=== PATIENT | male | born 1945 | race Two or more races ===

== ENCOUNTER 2020-03-01 07:07 | Outpatient (REF) | payer MEDICARE, SELFPAY ==
[2020-03-01 08:44] LABS: Estimated Average Glucose 120 mg/dL; Hemoglobin A1c % 5.8 %
[2020-03-01 08:45] LABS: Alanine Aminotransferase 25 U/L (0-40); Alkaline Phosphatase 92 U/L (39-117); Anion Gap 10 (12-20); Aspartate Amino Transferase 19 U/L (5-37); Bilirubin Total 0.6 mg/dL (0.0-1.0); Blood Urea Nitrogen 16 mg/dL (9-16); Calcium 8.9 mg/dL (8.4-10.2); Carbon Dioxide 29 mmol/L (22-29); Chloride 109 mmol/L (96-108); Cholesterol 135 mg/dL; Estimated Glomerular Filt Rate 54; Glucose Random 107 mg/dL (60-115); HDL Cholesterol 34 mg/dL; LDL Cholesterol Calculated 86 mg/dl; Potassium 4.3 mmol/l (3.3-5.1); Sodium 144 mmol/L (135-145); Total Protein 6.9 g/dL (6.5-8.0); Triglycerides 78 mg/dL
== END 2020-03-01 07:08 | disposition home or self-care (01) ==
LOC: HO.LAB 07:07
PROVIDERS: PCP Internal Medicine; Visit Provider Internal Medicine
DX: Z00.01 Encounter for general adult medical examination with abnormal findings (principal); E78.00 Pure hypercholesterolemia, unspecified; I12.9 Hypertensive chronic kidney disease with stage 1 through stage 4 chronic kidney disease, or unspecified chronic kidney disease; N18.9 Chronic kidney disease, unspecified
CPT/HCPCS: 80053; 80061; 83036

== ENCOUNTER 2020-07-06 07:28 | Outpatient (REF) | payer MEDICARE, SELFPAY ==
[2020-07-06 08:03] LABS: MANUAL DIFF FLAG NO
[2020-07-06 08:05] LABS: Basophils Percent Auto 0.3 % (0-2); Eosinophils Percent Auto 0.6 % (0-4); Hematocrit 45.4 % (42-52); Hemoglobin 14.8 g/dl (14.0-18.0); Imm Gran Abs Auto 0.02 X10*3/uL (0.00-0.03); Imm Gran Pct Auto 0.3 % (0.0-0.4); Lymphocytes Absolute Auto 1.9 X10*3/uL (1.2-4.9); Lymphocytes Percent Auto 30.4 % (20-40); Mean Corpuscular HGB Conc 32.6 g/dl (31.0-36.0); Mean Corpuscular Hemoglobin 28.1 pg (27.0-33.0); Mean Corpuscular Volume 86.3 fL (80-98); Mean Platelet Volume 11.1 fL (9.4-12.4); Monocytes Absolute Auto 0.6 X10*3/uL (0.1-1.2); Neutrophils Absolute Auto 3.8 X10*3/uL (2.0-8.3); Neutrophils Percent Auto 59.4 % (45-73); Platelet Count 213 X10*3/uL (160-400); Red Blood Count 5.26 X10*6/uL (4.60-5.80); Red Cell Distribution Width 13.4 % (11.0-16.0); White Blood Count 6.3 X10*3/uL (4.8-10.8)
[2020-07-06 08:31] LABS: Alanine Aminotransferase 28 U/L (0-40); Albumin Level 3.9 g/dL (3.5-5.0); Alkaline Phosphatase 100 U/L (39-117); Anion Gap 11 (12-20); Aspartate Amino Transferase 22 U/L (5-37); Bilirubin Total 0.4 mg/dL (0.0-1.0); Blood Urea Nitrogen 14 mg/dL (9-16); Calcium 8.6 mg/dL (8.4-10.2); Carbon Dioxide 26 mmol/L (22-29); Chloride 107 mmol/L (96-108); Cholesterol 164 mg/dL; Estimated Glomerular Filt Rate 52; Glucose Random 114 mg/dL (60-115); HDL Cholesterol 31 mg/dL; LDL Cholesterol Calculated 114 mg/dl; Potassium 4.3 mmol/L (3.3-5.1); Sodium 140 mmol/L (135-145); Triglycerides 99 mg/dL
[2020-07-06 08:54] LABS: Thyroid Stimulating Hormone 2.38 uIU/mL (0.32-4.0)
== END 2020-07-06 07:29 | disposition home or self-care (01) ==
LOC: HO.LAB 07:28
PROVIDERS: PCP Internal Medicine; Visit Provider Internal Medicine
DX: E78.00 Pure hypercholesterolemia, unspecified (principal); I12.9 Hypertensive chronic kidney disease with stage 1 through stage 4 chronic kidney disease, or unspecified chronic kidney disease
CPT/HCPCS: 36415; 80053; 80061; 84443; 85025

== ENCOUNTER 2021-02-25 07:15 | Outpatient (REF) | payer MEDICARE, SELFPAY ==
[2021-02-25 07:26] LABS: MANUAL DIFF FLAG NO
[2021-02-25 08:31] LABS: Basophils Percent Auto 0.3 % (0-2); Eosinophils Absolute Auto 0.1 X10*3/uL (0.0-0.4); Eosinophils Percent Auto 1.5 % (0-4); Hematocrit 46.4 % (42-52); Imm Gran Abs Auto 0.03 X10*3/uL (0.00-0.03); Imm Gran Pct Auto 0.5 % (0.0-0.4); Lymphocytes Absolute Auto 2.3 X10*3/uL (1.2-4.9); Lymphocytes Percent Auto 35.1 % (20-40); Mean Corpuscular HGB Conc 32.3 g/dl (31.0-36.0); Mean Corpuscular Volume 86.6 fL (80-98); Mean Platelet Volume 11.4 fL (9.4-12.4); Monocytes Absolute Auto 0.6 X10*3/uL (0.1-1.2); Monocytes Percent Auto 8.3 % (2-11); Neutrophils Absolute Auto 3.6 X10*3/uL (2.0-8.3); Neutrophils Percent Auto 54.3 % (45-73); Platelet Count 193 X10*3/uL (160-400); Red Blood Count 5.36 X10*6/uL (4.60-5.80); Red Cell Distribution Width 14.2 % (11.0-16.0); White Blood Count 6.6 X10*3/uL (4.8-10.8)
[2021-02-25 08:58] LABS: Alanine Aminotransferase 34 U/L (0-40); Albumin Level 4.2 g/dL (3.5-5.0); Alkaline Phosphatase 99 U/L (39-117); Anion Gap 9 (12-20); Aspartate Amino Transferase 24 U/L (5-37); Bilirubin Total 0.6 mg/dL (0.0-1.0); Blood Urea Nitrogen 11 mg/dL (9-16); Calcium 9.3 mg/dL (8.4-10.2); Carbon Dioxide 29 mmol/L (22-29); Chloride 110 mmol/L (96-108); Cholesterol 206 mg/dL; Estimated Glomerular Filt Rate 53; Glucose Fasting 108 mg/dL (60-99); HDL Cholesterol 37 mg/dL; LDL Cholesterol Calculated 150 mg/dl; Potassium 4.7 mmol/L (3.3-5.1); Sodium 143 mmol/L (135-145); Total Protein 7.3 g/dL (6.5-8.0); Triglycerides 99 mg/dL
== END 2021-02-25 07:16 | disposition home or self-care (01) ==
LOC: HO.LAB 07:15
PROVIDERS: PCP Internal Medicine; Visit Provider Internal Medicine
DX: Z00.00 Encounter for general adult medical examination without abnormal findings (principal); Z13.31 Encounter for screening for depression; E78.2 Mixed hyperlipidemia; I12.9 Hypertensive chronic kidney disease with stage 1 through stage 4 chronic kidney disease, or unspecified chronic kidney disease; N18.9 Chronic kidney disease, unspecified
CPT/HCPCS: 36415; 80053; 80061; 85025

== ENCOUNTER 2021-07-01 07:55 | Outpatient (REF) | payer MEDICARE, SELFPAY ==
[2021-07-01 09:27] LABS: Alanine Aminotransferase 24 U/L (0-40); Albumin Level 3.9 g/dL (3.5-5.0); Alkaline Phosphatase 80 U/L (39-117); Anion Gap 10 (12-20); Aspartate Amino Transferase 20 U/L (5-37); Bilirubin Total 0.6 mg/dL (0.0-1.0); Blood Urea Nitrogen 18 mg/dL (9-16); Calcium 9.3 mg/dL (8.4-10.2); Carbon Dioxide 29 mmol/L (22-29); Chloride 106 mmol/L (96-108); Cholesterol 153 mg/dL; Estimated Glomerular Filt Rate 44; Glucose Random 111 mg/dL (60-115); HDL Cholesterol 32 mg/dL; LDL Cholesterol Calculated 104 mg/dl; Potassium 4.5 mmol/L (3.3-5.1); Triglycerides 85 mg/dL
[2021-07-01 09:37] LABS: Sodium 141 mmol/L (135-145)
== END 2021-07-01 07:56 | disposition home or self-care (01) ==
LOC: HO.LAB 07:55
PROVIDERS: PCP Internal Medicine; Visit Provider Internal Medicine
DX: E78.00 Pure hypercholesterolemia, unspecified (principal); I12.9 Hypertensive chronic kidney disease with stage 1 through stage 4 chronic kidney disease, or unspecified chronic kidney disease; N18.9 Chronic kidney disease, unspecified
CPT/HCPCS: 36415; 80053; 80061

== ENCOUNTER 2021-10-02 06:54 | Outpatient (REF) | payer OTHER, SELFPAY ==
[2021-10-02 07:11] LABS: MANUAL DIFF FLAG NO
[2021-10-02 07:39] LABS: Basophils Percent Auto 0.4 % (0-2); Eosinophils Absolute Auto 0.1 X10*3/uL (0.0-0.4); Eosinophils Percent Auto 1.3 % (0-4); Hematocrit 44.2 % (42.0-52.0); Hemoglobin 14.2 g/dl (14.0-18.0); Imm Gran Abs Auto 0.06 X10*3/uL (0.00-0.03); Imm Gran Pct Auto 0.9 % (0.0-0.4); Lymphocytes Absolute Auto 2.3 X10*3/uL (1.2-4.9); Lymphocytes Percent Auto 33.5 % (20-40); Mean Corpuscular HGB Conc 32.1 g/dl (31.0-36.0); Mean Corpuscular Hemoglobin 27.5 pg (27.0-33.0); Mean Corpuscular Volume 85.7 fL (80.0-98.0); Mean Platelet Volume 10.8 fL (9.4-12.4); Monocytes Absolute Auto 0.6 X10*3/uL (0.1-1.2); Monocytes Percent Auto 9.2 % (2-11); Neutrophils Absolute Auto 3.8 x10*3/uL (2.0-8.3); Neutrophils Percent Auto 54.7 % (45-73); Platelet Count 198 X10*3/uL (160-400); Red Blood Count 5.16 X10*6/uL (4.60-5.80); Red Cell Distribution Width 14.5 % (11.0-16.0); White Blood Count 6.9 X10*3/uL (4.8-10.8)
[2021-10-02 08:04] LABS: Alanine Aminotransferase 24 U/L (0-40); Albumin Level 3.9 g/dL (3.5-5.0); Alkaline Phosphatase 70 U/L (39-117); Anion Gap 10 (12-20); Aspartate Amino Transferase 20 U/L (5-37); Bilirubin Total 0.4 mg/dL (0.0-1.0); Blood Urea Nitrogen 19 mg/dL (9-16); Calcium 9.8 mg/dL (8.4-10.2); Carbon Dioxide 29 mmol/L (22-29); Chloride 107 mmol/L (96-108); Cholesterol 231 mg/dL; Estimated Glomerular Filt Rate 45; Glucose Random 118 mg/dL (60-115); HDL Cholesterol 36 mg/dL; LDL Cholesterol Calculated 170 mg/dl; Potassium 4.1 mmol/L (3.3-5.1); Sodium 142 mmol/L (135-145); Triglycerides 129 mg/dL
[2021-10-02 08:54] LABS: Creatinine Urine 221.44 mg/dL; Microalbum/Creatinine Ratio Ur 3.6 ug/mg cr
== END 2021-10-02 06:55 | disposition home or self-care (01) ==
LOC: HO.LAB 06:54
PROVIDERS: PCP Internal Medicine; Visit Provider Internal Medicine
DX: E78.00 Pure hypercholesterolemia, unspecified (principal); I12.9 Hypertensive chronic kidney disease with stage 1 through stage 4 chronic kidney disease, or unspecified chronic kidney disease; N18.9 Chronic kidney disease, unspecified
CPT/HCPCS: 36415; 80053; 80061; 82043; 85025

== ENCOUNTER 2021-11-18 09:25 | Outpatient (REF) | payer OTHER, SELFPAY ==
--- NOTE | ~2021-11-18 | US_ITS ---
EXAMINATION: US RETROPERITONEAL LIMITED (RENAL ONLY) AND RENAL DOPPLER CLINICAL INFORMATION: Hypertension. COMPARISON: None. TECHNIQUE: Grayscale and color imaging of the kidneys. Grayscale and Doppler imaging of the renal arteries and renal veins including waveform spectral analysis. FINDINGS: RIGHT KIDNEY: 9.5 x 4.6 x 6 cm (SAG x AP x TRV). The kidney is normal in size, contour, and echogenicity. Renal cortical thickness is normal. There are 2 cysts. There is a 1.7 x 1.4 x 1.4 cm cyst in the upper pole. There is a 2.7 x 2.2 x 3 cm cyst with septation and wall calcification in the midpole. There is question of a 3 mm stone in the midpole. No mass. No hydronephrosis. LEFT KIDNEY: 9.7 x 5.5 x 4.7 cm (SAG x AP x TRV). The kidney is normal in size, contour, and echogenicity. Renal cortical thickness is normal. There are 3 and 4 mm stones in the midpole. There is probable prominent column of Jerel in the midpole measuring 2 x 1.6 x 1.6 cm. No hydronephrosis. RENAL DOPPLER EXAM: Peak systolic velocity of the mid abdominal aorta measures 114 cm/s which is too high to be used to calculate renal jexkai-io-hmlrq ratio. The right renal artery is patent. Right renal artery peak systolic velocity is elevated and measures 209 cm/s proximally, 118 cm/s in the midportion and 134 cm/s distally. Right renal artery segmental resistive indices are slightly elevated measuring 0.7-0.8. The right renal vein is patent. The left renal artery is patent. Left renal artery peak systolic velocity is elevated and measures 228 cm/s proximally, 203 cm/s in the midportion and 83 cm/s distally. Resistive indices of the segmental renal arteries in the left kidney are slightly elevated measuring 0.7-0.8. The left renal artery is patent. US/US renal doppler IMPRESSION: Increased bilateral renal artery peak systolic velocities and resistive indices suggestive of at least 60% renal artery stenosis. Renal lvuxrm-aw-xiaqt ratios cannot be calculated. Bilateral renal stones. Right renal cysts. Probable hypertrophied column of Jerel in the midpole of the left kidney.
--- NOTE | ~2021-11-18 | US_ITS ---
EXAMINATION: US RETROPERITONEAL LIMITED (RENAL ONLY) AND RENAL DOPPLER CLINICAL INFORMATION: Hypertension. COMPARISON: None. TECHNIQUE: Grayscale and color imaging of the kidneys. Grayscale and Doppler imaging of the renal arteries and renal veins including waveform spectral analysis. FINDINGS: RIGHT KIDNEY: 9.5 x 4.6 x 6 cm (SAG x AP x TRV). The kidney is normal in size, contour, and echogenicity. Renal cortical thickness is normal. There are 2 cysts. There is a 1.7 x 1.4 x 1.4 cm cyst in the upper pole. There is a 2.7 x 2.2 x 3 cm cyst with septation and wall calcification in the midpole. There is question of a 3 mm stone in the midpole. No mass. No hydronephrosis. LEFT KIDNEY: 9.7 x 5.5 x 4.7 cm (SAG x AP x TRV). The kidney is normal in size, contour, and echogenicity. Renal cortical thickness is normal. There are 3 and 4 mm stones in the midpole. There is probable prominent column of Jerel in the midpole measuring 2 x 1.6 x 1.6 cm. No hydronephrosis. RENAL DOPPLER EXAM: Peak systolic velocity of the mid abdominal aorta measures 114 cm/s which is too high to be used to calculate renal htkxkf-oa-uzgqi ratio. The right renal artery is patent. Right renal artery peak systolic velocity is elevated and measures 209 cm/s proximally, 118 cm/s in the midportion and 134 cm/s distally. Right renal artery segmental resistive indices are slightly elevated measuring 0.7-0.8. The right renal vein is patent. The left renal artery is patent. Left renal artery peak systolic velocity is elevated and measures 228 cm/s proximally, 203 cm/s in the midportion and 83 cm/s distally. Resistive indices of the segmental renal arteries in the left kidney are slightly elevated measuring 0.7-0.8. The left renal artery is patent. US/US renal BI IMPRESSION: Increased bilateral renal artery peak systolic velocities and resistive indices suggestive of at least 60% renal artery stenosis. Renal olqqta-ny-audmg ratios cannot be calculated. Bilateral renal stones. Right renal cysts. Probable hypertrophied column of Jerel in the midpole of the left kidney.
== END 2021-11-18 09:26 | disposition home or self-care (01) ==
LOC: HO.US 09:25
PROVIDERS: Visit Provider Internal Medicine Nephrology
DX: I12.9 Hypertensive chronic kidney disease with stage 1 through stage 4 chronic kidney disease, or unspecified chronic kidney disease (principal); N18.31 Chronic kidney disease, stage 3a
CPT/HCPCS: 76775; 93975

== ENCOUNTER 2021-12-13 08:33 | Outpatient (REF) | payer OTHER, SELFPAY ==
[2021-12-13 09:30] LABS: Estimated Average Glucose 126 mg/dL
[2021-12-13 09:48] LABS: Alanine Aminotransferase 25 U/L (0-40); Albumin Level 3.9 g/dL (3.5-5.0); Alkaline Phosphatase 73 U/L (39-117); Anion Gap 10 (12-20); Aspartate Amino Transferase 19 U/L (5-37); Bilirubin Total 0.5 mg/dL (0.0-1.0); Blood Urea Nitrogen 20 mg/dL (9-16); Calcium 9.1 mg/dL (8.4-10.2); Carbon Dioxide 28 mmol/L (22-29); Chloride 108 mmol/L (96-108); Cholesterol 168 mg/dL; Estimated Glomerular Filt Rate 47; Glucose Random 102 mg/dL (60-115); HDL Cholesterol 35 mg/dL; LDL Cholesterol Calculated 109 mg/dl; Potassium 4.3 mmol/L (3.3-5.1); Sodium 142 mmol/L (135-145); Total Protein 6.9 g/dL (6.5-8.0); Triglycerides 122 mg/dL
[2021-12-13 10:09] LABS: Thyroid Stimulating Hormone 1.65 uIU/mL (0.32-4.0)
== END 2021-12-13 08:34 | disposition home or self-care (01) ==
LOC: HO.LAB 08:33
PROVIDERS: PCP Internal Medicine; Visit Provider Internal Medicine
DX: E78.00 Pure hypercholesterolemia, unspecified (principal); I12.9 Hypertensive chronic kidney disease with stage 1 through stage 4 chronic kidney disease, or unspecified chronic kidney disease; N18.9 Chronic kidney disease, unspecified; K59.04 Chronic idiopathic constipation
CPT/HCPCS: 36415; 80053; 80061; 83036; 84443

== ENCOUNTER 2022-06-14 07:39 | Outpatient (REF) | payer OTHER, SELFPAY ==
[2022-06-14 08:05] LABS: MANUAL DIFF FLAG NO
[2022-06-14 08:34] LABS: Basophils Percent Auto 0.3 % (0-2); Eosinophils Absolute Auto 0.2 X10*3/uL (0.0-0.4); Eosinophils Percent Auto 2.1 % (0-4); Hematocrit 46.2 % (42.0-52.0); Imm Gran Abs Auto 0.05 X10*3/uL (0.00-0.03); Imm Gran Pct Auto 0.7 % (0.0-0.4); Lymphocytes Absolute Auto 2.3 X10*3/uL (1.2-4.9); Lymphocytes Percent Auto 31.3 % (20-40); Mean Corpuscular HGB Conc 32.5 g/dl (31.0-36.0); Mean Corpuscular Volume 83.1 fL (80.0-98.0); Mean Platelet Volume 10.3 fL (9.4-12.4); Monocytes Absolute Auto 0.8 X10*3/uL (0.1-1.2); Monocytes Percent Auto 10.7 % (2-11); Neutrophils Percent Auto 54.9 % (45-73); Platelet Count 210 X10*3/uL (160-400); Red Blood Count 5.56 X10*6/uL (4.60-5.80); Red Cell Distribution Width 14.5 % (11.0-16.0); White Blood Count 7.3 X10*3/uL (4.8-10.8)
[2022-06-14 09:09] LABS: Anion Gap 11 (12-20); Blood Urea Nitrogen 18 mg/dL (9-16); Calcium 9.4 mg/dL (8.4-10.2); Carbon Dioxide 29 mmol/L (22-29); Chloride 106 mmol/L (96-108); Estimated Glomerular Filt Rate 47; Potassium 4.2 mmol/L (3.3-5.1); Sodium 142 mmol/L (135-145)
[2022-06-14 09:21] LABS: Alanine Aminotransferase 34 U/L (0-40); Alkaline Phosphatase 81 U/L (39-117); Anion Gap 10 (12-20); Aspartate Amino Transferase 25 U/L (5-37); Bilirubin Total 0.6 mg/dL (0.0-1.0); Blood Urea Nitrogen 18 mg/dL (9-16); Calcium 9.4 mg/dL (8.4-10.2); Carbon Dioxide 29 mmol/L (22-29); Chloride 107 mmol/L (96-108); Cholesterol 158 mg/dL; Estimated Glomerular Filt Rate 46; Glucose Random 106 mg/dL (60-115); HDL Cholesterol 34 mg/dL; LDL Cholesterol Calculated 99 mg/dl; Potassium 4.1 mmol/L (3.3-5.1); Sodium 142 mmol/L (135-145); Triglycerides 128 mg/dL
[2022-06-14 09:41] LABS: Prostate Specific Antigen 5.84 ng/mL (<0.05-4.0); Vitamin D 25-OH Total 16.3 ng/mL (>30)
[2022-06-14 09:48] LABS: Creatinine Urine 174.01 mg/dL
== END 2022-06-14 07:40 | disposition home or self-care (01) ==
LOC: HO.LAB 07:39
PROVIDERS: Absent Provider Internal Medicine Nephrology; PCP Internal Medicine; Visit Provider Internal Medicine
DX: Z00.00 Encounter for general adult medical examination without abnormal findings (principal); Z12.5 Encounter for screening for malignant neoplasm of prostate; Z13.31 Encounter for screening for depression; N40.0 Benign prostatic hyperplasia without lower urinary tract symptoms; E78.00 Pure hypercholesterolemia, unspecified; I12.9 Hypertensive chronic kidney disease with stage 1 through stage 4 chronic kidney disease, or unspecified chronic kidney disease; N18.9 Chronic kidney disease, unspecified; N20.0 Calculus of kidney; N28.1 Cyst of kidney, acquired
CPT/HCPCS: 36415; 80051; 80053; 80061; 82306; 82310; 82565; 84153; 84520; 85025

== ENCOUNTER 2022-12-13 07:05 | Outpatient (REF) | payer OTHER, SELFPAY ==
[2022-12-13 08:08] LABS: Alanine Aminotransferase 27 U/L (0-40); Alkaline Phosphatase 73 U/L (39-117); Anion Gap 10 (12-20); Aspartate Amino Transferase 25 U/L (5-37); Bilirubin Total 0.5 mg/dL (0.0-1.0); Blood Urea Nitrogen 23 mg/dL (9-16); Calcium 9.3 mg/dL (8.4-10.2); Carbon Dioxide 27 mmol/L (22-29); Chloride 109 mmol/L (96-108); Estimated Glomerular Filt Rate 45; Glucose Random 121 mg/dL (60-115); Sodium 142 mmol/L (135-145); Total Protein 7.3 g/dL (6.5-8.0)
[2022-12-13 08:30] LABS: Prostate Specific Antigen 7.98 ng/mL (<0.05-4.0)
== END 2022-12-13 07:06 | disposition home or self-care (01) ==
LOC: HO.LAB 07:05
PROVIDERS: PCP Internal Medicine; Visit Provider Internal Medicine
DX: E55.9 Vitamin D deficiency, unspecified (principal); E70.0 Classical phenylketonuria; I12.9 Hypertensive chronic kidney disease with stage 1 through stage 4 chronic kidney disease, or unspecified chronic kidney disease; N18.9 Chronic kidney disease, unspecified; R97.20 Elevated prostate specific antigen [PSA]; Z12.5 Encounter for screening for malignant neoplasm of prostate
CPT/HCPCS: 36415; 80053; 84153

== ENCOUNTER 2023-01-05 13:48 | Outpatient (REF) | payer OTHER, SELFPAY ==
[2023-01-06 02:36] LABS: Anion Gap 12 (12-20); Blood Urea Nitrogen 24 mg/dL (9-16); Calcium 9.4 mg/dL (8.4-10.2); Carbon Dioxide 26 mmol/L (22-29); Chloride 109 mmol/L (96-108); Estimated Glomerular Filt Rate 37; Potassium 4.1 mmol/L (3.3-5.1); Sodium 143 mmol/L (135-145)
[2023-01-06 02:47] LABS: Creatinine Urine 110.24 mg/dL; Total Protein Urine Random < 7 mg/dL (<12)
== END 2023-01-05 13:49 | disposition home or self-care (01) ==
LOC: HO.LAB 13:48
PROVIDERS: PCP Internal Medicine; Visit Provider Internal Medicine Nephrology
DX: N20.0 Calculus of kidney (principal); I12.9 Hypertensive chronic kidney disease with stage 1 through stage 4 chronic kidney disease, or unspecified chronic kidney disease; N18.31 Chronic kidney disease, stage 3a
CPT/HCPCS: 36415; 80051; 82310; 82565; 84156; 84520

== ENCOUNTER 2023-01-23 09:49 | Outpatient (AMB) | payer OTHER, SELFPAY ==
--- NOTE | 2023-01-23 09:52 | MHC.OFFVIS ---
Intake Intake Visit Reasons: Elevated PSA 7.98 Intake Note: New Patient presents for initial visit Elevated PSA (PSA 7.98) Urology Medications: none Blood Thinner: none Parking Station Attendant Required: Yes Parking Station Attendant Name: AIDE Accompanied by: Self / Same As Patient Allergies GABI Inhibitors Adverse Reaction (Verified 01/23/23 10:27) renal failure atorvastatin Adverse Reaction (Verified 01/23/23 10:27) myalgia rosuvastatin Adverse Reaction (Verified 01/23/23 10:27) Constipation simvastatin Adverse Reaction (Verified 01/23/23 10:27) myalgia Medication List - Last Reconciled 01/23/23 by NAMRATA Deutsch amlodipine 10 mg PO DAILY lisinopril-hydrochlorothiazide 20-12.5 mg 1 tab PO DAILY rosuvastatin 20 mg PO BEDTIME HPI HPI Comments History of Present Illness Details Kirill is a pleasant 77 year old Swedish speaking patient of Dr. Mccall. He has a past medical history of hypercholesteremia, hypertension, and nephrolithiasis. He presents to the office today as a new patient for elevated PSA. Discussion with the patient today reports to be doing and feeling well. He reports having had annual blood work with PCP at which time he was noted to have an elevated PSA and referred to Urology. In review of patient's chart it appears PSAs are as follows: 05/11--3.0 06/16--5.8 12/14--8.0 Discussed at length potential causes for elevated PSA. Discussed redraw of PSA. Discussed further prostate biopsy versus surveillance monitoring verses trial of finasteride. Discuss treatment options at length. Discussed risks and benefits of asforementioned interventions. When asked patient denies any bothersome urinary issues or concerns at this time. He denies urinary urgency, urinary frequency, incontinence, nocturia, hematuria, dysuria, foul smelling urine, changes to urinary stream, flank pain, fever, and or chills. He is happy with his current voiding parameters. He denies any known family history of prostate cancer. In office urinalysis results reviewed with the patient today. TEDDY right side of prostate noted to be firm otherwise no masses or nodules palpated. He otherwise offers no issues or concerns at this time. [facility] Medical History High cholesterol Hypertension Nephrolithiasis Review of Systems Const Reports as per HPI Eyes Reports no additional complaints ENT Reports no additional complaints Card Reports as per HPI Resp Reports no additional complaints GI Reports no additional complaints Reports as per HPI Musc Reports no additional complaints Neuro Reports no additional complaints Psych Reports no additional complaints Endo Reports no additional complaints Uri/Lymph Reports no additional complaints Aller/Immun Reports no additional complaints Physical Exam Const General: cooperative, healthy appearing, comfortable, no acute distress, well developed, alert and awake Orientation/consciousness: patient oriented x3 Limitations: no limitations HEENT Head: Yes normal to inspection, Yes normocephalic and Yes atraumatic Ears: hearing grossly normal bilaterally Eyes General: appearance normal, both eyes and all related structures Neck Neck: Yes normal visual inspection and Yes trachea midline Chest Chest palpation & inspection: normal inspection of the chest Resp Effort & Inspection: normal respiratory effort and able to speak in complete sentences Cardio Rate: regular rate GI Inspection: Yes normal to inspection Rectal Exam - Male: Yes visual inspection normal, Yes normal sphincter tone and Yes other (as noted in HPI) General: Yes no CVA tenderness Back/Spine/Pelvis Back: no CVA tenderness Skin General skin exam: no rashes or lesions noted Neuro General: patient oriented x3 Extrem General: Yes normal to inspection Psych Appearance: grossly normal and well kempt Mental Status: mental status grossly normal Speech and movement: Normal speech and movement present and Clear speech present Affect: normal affect Attitude: cooperative Thought process: Normal thought process present Thought content: Normal thought content present Insight: Fair insight present (Psych) Judgement: Fair judgement present (Psych) Results AMB Urinalysis, Automated UA Leukoctes 0 Bertin/uL Last Edit by Jose Guadalupe Epstein on 01/23/23 10:08 UA Nitrite Negative Last Edit by [employer] Lucian on 01/23/23 10:08 UA Urobilinogen 0.2 mg/dL Last Edit by [employer] Lucian on 01/23/23 10:08 UA Protein 15 mg/dL Last Edit by BirceCenifymaribel Epstein on 01/23/23 10:08 UA pH 5.5 Last Edit by CoinJarmaribel Epstein on 01/23/23 10:08 UA Blood 0 Jason/uL Last Edit by CoinJarmaribel Epstein on 01/23/23 10:08 UA Specific Eldred 1.025 Last Edit by Jose Guadalupe Epstein on 01/23/23 10:08 UA Ketone Last Edit by Jose Guadalupe Epstein on 01/23/23 10:08 UA Bilirubin 0 mg/dL Last Edit by Jose Guadalupe Epstein on 01/23/23 10:08 UA Glucose 0 mg/dL Last Edit by Jose Guadalupe Epstein on 01/23/23 10:08 Results Reviewed Results Reviewed: Laboratory Last Values Urine pH (Auto) 5.5 01/23/23 09:57 Specific Eldred (Auto) 1.025 01/23/23 09:57 Urine Protein (Auto) 15 mg/dL 01/23/23 09:57 Glucose (UA)(Auto) 0 mg/dL 01/23/23 09:57 Urine Blood (Auto) 0 Jason/uL 01/23/23 09:57 Urine Nitrite (Auto) Negative 01/23/23 09:57 Urine Bilirubin (Auto) 0 mg/dL 01/23/23 09:57 Urine Urobilinogen (Auto) 0.2 mg/dL 01/23/23 09:57 Leukocyte Esterase (Auto) 0 Bertin/uL 01/23/23 09:57 Assessment & Plan Assessment & Plan (1) Elevated PSA: Code(s): R97.20 - Elevated prostate specific antigen [PSA] Plan In office urinalysis results reviewed with the patient today; as noted above. Discussed at length potential causes for elevated PSA. Discussed further treatment options at length; discussed risks and benefits. Will obtain redraw of PSA with specific instructions of no sex the night before, no caffeine morning of, and no heavy lifting 1-2 days prior to lab draw. TEDDY right side of prostate noted to be firm otherwise no masses or nodules palpated. Will obtain retroperitoneal ultrasound for further assessment evaluation. Patient denies any bothersome urinary issues or concerns at this time. Follow-up in 1-2 months with imaging and lab to be completed prior; or sooner with any issues, concerns, and or questions. Orders: Orders PSA,Total (Free>4and<10) 01/23/23 R97.20 - Elevated prostate specific antigen [PSA] US retroperitoneal comp 01/23/23 R39.9 - Unspecified symptoms and signs involving the genitourinary system AMB Urinalysis Automated 01/23/23 Z13.9 - Encounter for screening, unspecified Patient Instructions: The patient had an opportunity to ask questions regarding the treatment plan. All questions were answered. Physical exam, labs, and imaging were discussed and reviewed in detail. As well as risks, benefits, and discussion of treatment choices. No major barriers to understanding were identified. The patient expressed understanding and agreement with the above treatment plan. The patient was made aware they should contact our office by phone for worsening of their current condition, the appearance of new symptoms, or with any questions or concerns. Compliance is encouraged with any medications and follow up testing that is ordered. It is a privilege to be allowed the opportunity to participate in? your urological care.? Again, if you have any questions or concerns If you have any questions or concerns please do not hesitate to contact me. The office is [phone]. This note is constructed using voice recognition software. While every effort has been made to ensure accuracy java user interface developer errors may have been included. Yours sincerely, NAMRATA Deutsch Coding Level of Care Code New Pt Level 3 (02065) Diagnoses Elevated PSA R97.20
== END 2023-01-23 10:25 | disposition home or self-care (01) ==
PROVIDERS: PCP Internal Medicine; Visit Provider Nurse Practitioner Family
DX: R97.20 Elevated prostate specific antigen [PSA] (principal)
CPT/HCPCS: 99203

== ENCOUNTER → 2023-01-23 09:49 | Outpatient (BNVA) | payer OTHER, SELFPAY | PROVIDERS: PCP Internal Medicine; Visit Provider Nurse Practitioner Family | DX: R97.20 Elevated prostate specific antigen [PSA] (principal) | CPT/HCPCS: 81003; 99202 ==

== ENCOUNTER 2023-02-06 13:15 | Outpatient (REF) | payer OTHER, SELFPAY ==
--- NOTE | ~2023-02-06 | US_ITS ---
EXAMINATION: US RETROPERITONEAL COMPLETE (RENAL) CLINICAL INFORMATION: Unspecified symptoms and signs involving the genitourinary system. COMPARISON: Renal ultrasound 11/18/2021. TECHNIQUE: Real-time imaging of the kidneys and bladder. FINDINGS: RIGHT KIDNEY: 9.1 x 5.2 x 5.6 cm (SAG x AP x TRV). The kidney is normal in size, contour, and echogenicity. Renal cortical thickness is normal. No renal calculi or hydronephrosis. Benign-appearing renal cysts and likely benign renal cysts measuring up to 3 cm. No follow-up imaging recommended. LEFT KIDNEY: 10.0 x 5.5 x 4.1 cm (SAG x AP x TRV). The kidney is normal in size, contour, and echogenicity. Renal cortical thickness is normal. No calculi or focal parenchymal lesions. No hydronephrosis. Hypertrophied column of Jerel. BLADDER: Partially distended. Bilateral ureteral jets are not demonstrated. Prevoid bladder volume is 74.3 mL. Postvoid bladder volume is 2.2 mL. ADDITIONAL FINDINGS: Prostate is markedly enlarged with a volume of 136 mL. US/US retroperitoneal comp IMPRESSION: No hydronephrosis or nephrolithiasis. Marked prostatomegaly.
== END 2023-02-06 13:16 | disposition home or self-care (01) ==
LOC: HO.US 13:15
PROVIDERS: PCP Internal Medicine; Visit Provider Nurse Practitioner Family
DX: R39.9 Unspecified symptoms and signs involving the genitourinary system (principal)
CPT/HCPCS: 76770

== ENCOUNTER 2023-03-17 07:29 | Outpatient (REF) | payer OTHER, SELFPAY ==
[2023-03-17 08:34] LABS: PSA,Total (Free>4and<10) 5.85 ng/mL (0.00-4.00)
[2023-03-18 11:03] LABS: Free Prostate Spec Ag 1.5 ng/mL; Percent Free Prostate Spec Ag 27 % (calc) (>25); Prostate Specific Ag Total 5.6 ng/mL (< OR = 4.0)
== END 2023-03-17 07:30 | disposition home or self-care (01) ==
LOC: HO.LAB 07:29
PROVIDERS: PCP Internal Medicine; Visit Provider Nurse Practitioner Family
DX: R97.20 Elevated prostate specific antigen [PSA] (principal); Z12.5 Encounter for screening for malignant neoplasm of prostate
CPT/HCPCS: 36415; 84153; 84154

== ENCOUNTER 2023-03-24 14:10 | Outpatient (AMB) | payer OTHER, SELFPAY ==
--- NOTE | 2023-03-24 14:31 | A.OFFVIS_ITS ---
Intake Intake Visit Reasons: Elevated PSA- follow up/US/Labs(set) Intake Note: Patient presents today for a follow-up on Elavated PSA Meds- None Allergies to Antibiotic- No Known Allergies Blood Thinner- None PSA Results- Total 5.85 ng/mL, Prostate Spe 7.98 ng/mL 03/17/2023 PVR- 70 mL Patient Symptoms: None Copy Technician Required: Yes Copy Technician Language: Plate Printer Name: AIDE BondELVIRA Information Interpreted: non-clinical & clinical Accompanied by: Self / Same As Patient Allergies GABI Inhibitors Adverse Reaction (Verified 03/24/23 23:34) renal failure atorvastatin Adverse Reaction (Verified 03/24/23 23:34) myalgia rosuvastatin Adverse Reaction (Verified 03/24/23 23:34) Constipation simvastatin Adverse Reaction (Verified 03/24/23 23:34) myalgia Medication List - Last Reconciled 03/24/23 by CHERY Deutsch- amlodipine 10 mg PO DAILY finasteride 5 mg PO DAILY 90 days lisinopril-hydrochlorothiazide 20-12.5 mg 1 tab PO DAILY rosuvastatin 20 mg PO BEDTIME HPI HPI Comments History of Present Illness Details Kirill is a pleasant 77 year old Bulgarian speaking patient of Dr. Mccall. He has a past medical history of hypercholesteremia, hypertension, and nephrolithiasis. He presents to the office today for follow-up. Of note, patient was seen approximately 2 months ago as a new patient for elevated PSA at which time redraw of PSA was ordered as well as a retroperitoneal ultrasound for further assessment evaluation these results reviewed with the patient today. Right kidney with no calculi, and or hydronephrosis. Benign-appearing renal cyst and likely benign renal cysts measuring up to 3 cm. No imaging follow-up recommended per radiology report. Left kidney with no hydronephrosis and or calculi. The bladder is partially distended. Prevoid bladder volume is approximately 75 mL. Postvoid bladder volume is approximately 2 mL. Prostate is markedly enlarged with a volume of 136 mL. PSAs are as follows: 05/11--3.0 06/16--5.8 12/14--8.0 03/17--5.9 03/17--5.6 % free PSA 27%. Discussed at length potential causes for elevated PSA. Discussed further prostate biopsy versus surveillance monitoring verses trial of finasteride. Discussed treatment options at length. Discussed risks and benefits of asforemen tioned interventions. When asked patient denies any bothersome urinary issues or concerns at this time. He denies urinary urgency, urinary frequency, incontinence, nocturia, hematuria, dysuria, foul smelling urine, changes to urinary stream, flank pain, fever, and or chills. He is happy with his current voiding parameters. He denies any known family history of prostate cancer. In office urinalysis results reviewed with the patient today. He otherwise offers no issues or concerns at this time. [facility] Medical History (Updated 03/24/23 @ 23:[address] [facility]) High cholesterol Nephrolithiasis Hypertension Surgical History (Updated 03/24/23 @ 14:33 by CARL Banuelos) No pertinent past surgical history Family History (Updated 03/24/23 @ 14:33 by CARL Banuelos) Father No problems noted. Mother No problems noted. Social History (Updated 03/24/23 @ 14:33 by CARL Banuelos) Unable to assess alcohol history related to: Unable to respond Patient Tobacco Use Status: Never used Tobacco Review of Systems Const Reports as per HPI Eyes Reports no additional complaints ENT Reports no additional complaints Card Reports as per HPI Resp Reports no additional complaints GI Reports no additional complaints Reports as per HPI Musc Reports no additional complaints Neuro Reports no additional complaints Psych Reports no additional complaints Endo Reports no additional complaints Uri/Lymph Reports no additional complaints Aller/Immun Reports no additional complaints Physical Exam Const General: cooperative, healthy appearing, comfortable, no acute distress, well developed, alert and awake Orientation/consciousness: patient oriented x3 Limitations: no limitations HEENT Head: Yes normal to inspection, Yes normocephalic and Yes atraumatic Ears: hearing grossly normal bilaterally Eyes General: appearance normal, both eyes and all related structures Neck Neck: Yes normal visual inspection and Yes trachea midline Chest Chest palpation & inspection: normal inspection of the chest Resp Effort & Inspection: normal respiratory effort and able to speak in complete sentences Cardio Rate: regular rate GI Inspection: Yes normal to inspection Rectal Exam - Male: Yes visual inspection normal, Yes normal sphincter tone and Yes other (as noted in HPI) General: Yes no CVA tenderness Back/Spine/Pelvis Back: no CVA tenderness Skin General skin exam: no rashes or lesions noted Neuro General: patient oriented x3 Extrem General: Yes normal to inspection Psych Appearance: grossly normal and well kempt Mental Status: mental status grossly normal Speech and movement: Normal speech and movement present and Clear speech present Affect: normal affect Attitude: cooperative Thought process: Normal thought process present Thought content: Normal thought content present Insight: Fair insight present (Psych) Judgement: Fair judgement present (Psych) Office Procedures Post Void Residual Post Residual Void Post Void Residual (PVR): 70 [id number] Void Residual by ultrasound Results AMB Urinalysis, Automated UA Leukoctes 0 Bertin/uL Last Edit by CARL Banuelos on 03/24/23 14:30 UA Nitrite Negative Last Edit by CARL Banuelos on 03/24/23 14:30 UA Urobilinogen 0.2 mg/dL Last Edit by CARL Banuelos on 03/24/23 14:3 0 UA Protein 15 mg/dL Last Edit by CARL Banuelos on 03/24/23 14:30 UA pH 5.5 Last Edit by CARL Banuelos on 03/24/23 14:30 UA Blood 0 Jason/uL Last Edit by CARL Banuelos on 03/24/23 14:30 UA Specific Kell 1.025 Last Edit by CARL Banuelos on 03/24/23 14: 30 UA Ketone Negative Last Edit by CARL Banuelos on 03/24/23 14:30 UA Bilirubin 0 mg/dL Last Edit by CARL Banuelos on 03/24/23 14:30 UA Glucose 0 mg/dL Last Edit by CARL Banuelos on 03/24/23 14:30 Results Reviewed Results Reviewed: Laboratory Last Values Urine pH (Auto) 5.5 03/24/23 14:24 Specific Kell (Auto) 1.025 03/24/23 14:24 Urine Protein (Auto) 15 mg/dL 03/24/23 14:24 Glucose (UA)(Auto) 0 mg/dL 03/24/23 14:24 Urine Ketones (Auto) Negative 03/24/23 14:24 Urine Blood (Auto) 0 Jason/uL 03/24/23 14:24 Urine Nitrite (Auto) Negative 03/24/23 14:24 Urine Bilirubin (Auto) 0 mg/dL 03/24/23 14:24 Urine Urobilinogen (Auto) 0.2 mg/dL 03/24/23 14:24 Leukocyte Esterase (Auto) 0 Bertin/uL 03/24/23 14:24 Ordering Physician: Cecilia MacdonaldBC Date of Service: 02/06/23 EXAMINATION: US RETROPERITONEAL COMPLETE (RENAL) FINDINGS: RIGHT KIDNEY: 9.1 x 5.2 x 5.6 cm (SAG x AP x TRV). The kidney is normal in size, contour, and echogenicity. Renal cortical thickness is normal. No renal calculi or hydronephrosis. Benign-appearing renal cysts and likely benign renal cysts measuring up to 3 cm. No follow-up imaging recommended. LEFT KIDNEY: 10.0 x 5.5 x 4.1 cm (SAG x AP x TRV). The kidney is normal in size, contour, and echogenicity. Renal cortical thickness is normal. No calculi or focal parenchymal lesions. No hydronephrosis. Hypertrophied column of Jerel. BLADDER: Partially distended. Bilateral ureteral jets are not demonstrated. Prevoid bladder volume is 74.3 mL. Postvoid bladder volume is 2.2 mL. ADDITIONAL FINDINGS: Prostate is markedly enlarged with a volume of 136 mL. IMPRESSION: No hydronephrosis or nephrolithiasis. Marked prostatomegaly. Assessment & Plan Assessment & Plan (1) Elevated PSA: Code(s): R97.20 - Elevated prostate specific antigen [PSA] (2) Enlarged prostate: Code(s): N40.0 - Benign prostatic hyperplasia without lower urinary tract symptoms (3) Renal cyst: Code(s): N28.1 - Cyst of kidney, acquired Plan In office urinalysis results reviewed with the patient today; as noted above. Recent PSA results reviewed with the patient today; as noted above. Recent retroperitoneal ultrasound results reviewed with the patient today; as noted above. Discussed at length potential causes for elevated PSA. Discussed further treatment options at length; discussed risks and benefits. Start finasteride as discussed and prescribed. Patient denies any bothersome urinary issues or concerns at this time. Patient reports be happy with current voiding parameters. Will obtain PSA in 4 months. Follow-up in 4 months with PSA to be completed prior; or sooner with any issues, concerns, and or questions. Orders: Orders AMB Urinalysis Automated Today Z13.9 - Encounter for screening, unspecified AMB Post Void Residual by ultrasound Today N39.8 - Other specified disorders of urinary system PSA,Total (Free>4and<10) 4 Months R97.20 - Elevated prostate specific antigen [PSA] Medications: New finasteride 5 mg PO DAILY 90 days 90 tabs 1RF N13.8 - Other obstructive and reflux uropathy, N40.1 - Benign prostatic hyperplasia with lower urinary tract symptoms, R33.9 - Retention of urine, unspecified Patient Instructions: The patient had an opportunity to ask questions regarding the treatment plan. All questions were answered. Physical exam, labs, and imaging were discussed and reviewed in detail. As well as risks, benefits, and discussion of treatment choices. No major barriers to understanding were identified. The patient expressed understanding and agreement with the above treatment plan. The patient was made aware they should contact our office by phone for worsening of their current condition, the appearance of new symptoms, or with any questions or concerns. Compliance is encouraged with any medications and follow up testing that is ordered. It is a privilege to be allowed the opportunity to participate in? your urological care.? Again, if you have any questions or concerns If you have any questions or concerns please do not hesitate to contact me. The office is [phone]. This note is constructed using voice recognition software. While every effort has been made to ensure accuracy move coordinator errors may have been included. Yours sincerely, NAMRATA Deutsch Coding Level of Care Code Est Pt Level 4 (34506) Diagnoses Elevated PSA R97.20 Enlarged prostate N40.0 Renal cyst N28.1 CPT Codes Post Residual Void - PVR CPT Code: 94563-Aesh Void Residual by ultrasound ([id number])
== END 2023-03-24 15:00 | disposition home or self-care (01) ==
PROVIDERS: PCP Internal Medicine; Visit Provider Nurse Practitioner Family
DX: R97.20 Elevated prostate specific antigen [PSA] (principal); N40.0 Benign prostatic hyperplasia without lower urinary tract symptoms; N28.1 Cyst of kidney, acquired
CPT/HCPCS: 99214

== ENCOUNTER → 2023-03-24 14:10 | Outpatient (BNVA) | payer OTHER, SELFPAY | PROVIDERS: PCP Internal Medicine; Visit Provider Nurse Practitioner Family | DX: R97.20 Elevated prostate specific antigen [PSA] (principal); N40.0 Benign prostatic hyperplasia without lower urinary tract symptoms; N28.1 Cyst of kidney, acquired | CPT/HCPCS: 51798; 81003; 99212 ==

== ENCOUNTER 2023-03-25 08:07 | Outpatient (REF) | payer OTHER, SELFPAY ==
[2023-03-25 08:24] LABS: MANUAL DIFF FLAG NO
[2023-03-25 09:05] LABS: Basophils Percent Auto 0.5 % (0-2); Eosinophils Absolute Auto 0.1 X10*3/uL (0.0-0.4); Eosinophils Percent Auto 2.1 % (0-4); Hematocrit 43.4 % (42.0-52.0); Hemoglobin 14.2 g/dl (14.0-18.0); Imm Gran Abs Auto 0.03 X10*3/uL (0.00-0.03); Imm Gran Pct Auto 0.5 % (0.0-0.4); Lymphocytes Absolute Auto 2.2 X10*3/uL (1.2-4.9); Lymphocytes Percent Auto 33.6 % (20-40); Mean Corpuscular HGB Conc 32.7 g/dl (31.0-36.0); Mean Corpuscular Hemoglobin 27.6 pg (27.0-33.0); Mean Corpuscular Volume 84.4 fL (80.0-98.0); Mean Platelet Volume 10.7 fL (9.4-12.4); Monocytes Absolute Auto 0.6 X10*3/uL (0.1-1.2); Monocytes Percent Auto 9.6 % (2-11); Neutrophils Absolute Auto 3.5 x10*3/uL (2.0-8.3); Neutrophils Percent Auto 53.7 % (45-73); Platelet Count 209 X10*3/uL (160-400); Red Blood Count 5.14 X10*6/uL (4.60-5.80); Red Cell Distribution Width 14.8 % (11.0-16.0); White Blood Count 6.6 X10*3/uL (4.8-10.8)
[2023-03-25 09:21] LABS: Estimated Average Glucose 120 mg/dL; Hemoglobin A1c % 5.8 % (<6.0)
[2023-03-25 09:54] LABS: Alanine Aminotransferase 22 U/L (0-40); Albumin Level 3.9 g/dL (3.5-5.0); Alkaline Phosphatase 74 U/L (39-117); Anion Gap 12 (12-20); Aspartate Amino Transferase 20 U/L (5-37); Bilirubin Total 0.3 mg/dL (0.0-1.0); Blood Urea Nitrogen 16 mg/dL (9-16); Calcium 9.5 mg/dL (8.4-10.2); Carbon Dioxide 27 mmol/L (22-29); Chloride 107 mmol/L (96-108); Cholesterol 165 mg/dL (<200); Estimated Glomerular Filt Rate 49; Glucose Random 99 mg/dL (60-115); HDL Cholesterol 37 mg/dL (>40); LDL Cholesterol Calculated 106 mg/dL (<100); Potassium 3.9 mmol/L (3.3-5.1); Sodium 142 mmol/L (135-145); Total Protein 7.4 g/dL (6.5-8.0); Triglycerides 113 mg/dL (<150)
== END 2023-03-25 08:08 | disposition home or self-care (01) ==
LOC: HO.LAB 08:07
PROVIDERS: PCP Internal Medicine; Visit Provider Internal Medicine
DX: E78.00 Pure hypercholesterolemia, unspecified (principal); I12.9 Hypertensive chronic kidney disease with stage 1 through stage 4 chronic kidney disease, or unspecified chronic kidney disease; N18.9 Chronic kidney disease, unspecified; R73.01 Impaired fasting glucose; R97.20 Elevated prostate specific antigen [PSA]
CPT/HCPCS: 36415; 80053; 80061; 83036; 85025

== ENCOUNTER 2023-04-30 11:17 | Outpatient (REF) | payer OTHER, SELFPAY ==
[2023-04-30 11:39] LABS: MANUAL DIFF FLAG NO
[2023-04-30 12:33] LABS: Basophils Percent Auto 0.5 % (0-2); Eosinophils Absolute Auto 0.2 X10*3/uL (0.0-0.4); Eosinophils Percent Auto 3.1 % (0-4); Hematocrit 45.9 % (42.0-52.0); Hemoglobin 14.7 g/dl (14.0-18.0); Imm Gran Abs Auto 0.03 X10*3/uL (0.00-0.03); Imm Gran Pct Auto 0.5 % (0.0-0.4); Lymphocytes Absolute Auto 2.2 X10*3/uL (1.2-4.9); Lymphocytes Percent Auto 34.3 % (20-40); Mean Corpuscular Hemoglobin 27.1 pg (27.0-33.0); Mean Corpuscular Volume 84.7 fL (80.0-98.0); Mean Platelet Volume 10.8 fL (9.4-12.4); Monocytes Absolute Auto 0.5 X10*3/uL (0.1-1.2); Monocytes Percent Auto 7.8 % (2-11); Neutrophils Absolute Auto 3.5 x10*3/uL (2.0-8.3); Neutrophils Percent Auto 53.8 % (45-73); Platelet Count 228 X10*3/uL (160-400); Red Blood Count 5.42 X10*6/uL (4.60-5.80); Red Cell Distribution Width 14.5 % (11.0-16.0); White Blood Count 6.4 X10*3/uL (4.8-10.8)
[2023-04-30 12:58] LABS: Anion Gap 11 (12-20); Blood Urea Nitrogen 18 mg/dL (9-16); Carbon Dioxide 29 mmol/L (22-29); Chloride 105 mmol/L (96-108); Estimated Glomerular Filt Rate 42; Potassium 4.1 mmol/L (3.3-5.1); Sodium 141 mmol/L (135-145)
[2023-04-30 13:54] LABS: Creatinine Urine 194.33 mg/dL; Protein/Creatinine Ratio, Ur 0.05 (<0.2); Total Protein Urine Random 10 mg/dL (<12)
== END 2023-04-30 11:18 | disposition home or self-care (01) ==
LOC: HO.LAB 11:17
PROVIDERS: Visit Provider Internal Medicine Nephrology
DX: N28.1 Cyst of kidney, acquired (principal); N18.30 Chronic kidney disease, stage 3 unspecified
CPT/HCPCS: 36415; 80051; 82565; 82570; 84156; 84520; 85025

== ENCOUNTER 2023-05-06 14:32 | Outpatient (AMB) | payer OTHER, SELFPAY ==
--- NOTE | 2023-05-06 14:41 | HO.NEPHOV_ITS ---
HPI HPI Comments History of Present Illness Details Gurdeep is a 77-year-old male whom had the privilege of seeing in follow- up for his chronic kidney disease, hypertension and nephrolithiasis. He has been on antihypertensive medications including GABI inhibitor and diuretics for a long time. He is not a diabetic. He is compliant with his medications. He does not take any nonsteroidal anti-inflammatory medications. He has good urine output. He has no edema, nausea, vomiting, diarrhea, chest pain, shortness of breath, proximal nocturnal dyspnea or orthopnea. He has not had any recurrence of nephrolithiasis. He has no history of recent hematuria. He does not smoke or has any history of drug intake. His renal functions have been stable. [facility] Medical History (Updated 05/06/23 @ 15:09 by Aydin Burgess MD) High cholesterol Nephrolithiasis Hypertension Surgical History No pertinent past surgical history Family History Father No problems noted. Mother No problems noted. Social History Unable to assess alcohol history related to: Unable to respond Patient Tobacco Use Status: Never used Tobacco Vital Signs 05/06/23 14:45 Height 5 ft 4 in Weight 174 lb 4 oz BMI 29.9 BP 130/60 Blood Pressure Location Rt brachial Position Sitting Pulse 80 Pulse Source Pulse Oximeter Pulse Oximetry (%) 98 Oxygen Delivery Method Room Air Physical Exam Vital Signs: Last Vital Signs Pulse 80 05/06/23 14:45 BP 130/60 05/06/23 14:45 Pulse Ox 98 05/06/23 14:45 Oxygen Delivery Method Room Air 05/06/23 14:45 BMI result Body Mass Index 29.9 Const General: comfortable and no acute distress Orientation/consciousness: patient oriented x3 HEENT Head: Yes normocephalic Mouth: Normal oral and palatal mucosa present Eyes EOM: EOMs intact bilaterally Neck Neck: Yes supple Resp Auscultation: clear to auscultation bilaterally Cardio Jugular venous distension: no JVD Rate: regular rate GI Palpation (GI): Soft to palpation Auscultation: normal bowel sounds General: Yes no CVA tenderness Back/Spine/Pelvis Back: no CVA tenderness Skin General skin exam: no rashes or lesions noted Neuro General: patient oriented x3 and moves all extremities Extrem General: Yes no pedal edema Assessment & Plan Assessment & Plan (1) CKD (chronic kidney disease) stage 3, GFR 30-59 ml/min: Code(s): N18.30 - Chronic kidney disease, stage 3 unspecified Qualifiers: Chronic kidney disease stage 3 subtype: stage 3a (GFR 45-59) Qualified Code(s): N18.31 - Chronic kidney disease, stage 3a (2) Nephrolithiasis: Code(s): N20.0 - Calculus of kidney (3) Hypertension: Code(s): I10 - Essential (primary) hypertension Qualifiers: Hypertension type: primary hypertension Qualified Code(s): I10 - Essential (primary) hypertension (4) Renal cyst: Code(s): N28.1 - Cyst of kidney, acquired (5) Renal artery stenosis: Code(s): I70.1 - Atherosclerosis of renal artery Johnathan Mackenzie has 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 He has bilateral renal artery stenosis. He does not need any intervention for his SUZY now. He is on GABI inhibitor and hydrochlorothiazide. His blood pressure has been at goal at home. He has increased his fluid intake and he adds citrate in his liquid intake. He avoids nonsteroidal anti-inflammatory medications and maintain a low-sodium diet. His renal functions are pretty stable. I will arrange a follow-up imaging of his renal arteries as well as kidneys( to look at his renal cyst and renal arteries as well). I did not make any medication changes today. All his questions and concerns were addressed. Time spent retrieving data, documentation and patient encounter 27 minutes. Follow up given. Orders: Orders Electrolytes Today I10 - Essential (primary) hypertension, N18.30 - Chronic kidney disease, stage 3 unspecified, N20.0 - Calculus of kidney Creatinine Today I10 - Essential (primary) hypertension, N18.30 - Chronic kidney disease, stage 3 unspecified, N20.0 - Calculus of kidney Blood Urea Nitrogen Today I10 - Essential (primary) hypertension, N18.30 - Chronic kidney disease, stage 3 unspecified, N20.0 - Calculus of kidney Coding Level of Care Code Est Pt Level 4 (64341) Diagnoses Stage 3a chronic kidney disease N18.31 Chronic kidney disease stage 3 subtype: stage 3a (GFR 45-59) Nephrolithiasis N20.0 Primary hypertension I10 Hypertension type: primary hypertension Renal cyst N28.1 Renal artery stenosis I70.1 Results Reviewed Nephrology Results: Hgb 14.7 g/dl (14.0-18.0) 04/30/23 WBC 6.4 X10*3/uL (4.8-10.8) 04/30/23 Plt Count 228 X10*3/uL (160-400) 04/30/23 Sodium 141 mmol/L (135-145) 04/30/23 Potassium 4.1 mmol/L (3.3-5.1) 04/30/23 Chloride 105 mmol/L (96-108) 04/30/23 Carbon Dioxide 29 mmol/L (22-29) 04/30/23 BUN 18 mg/dL (9-16) H 04/30/23 Creatinine 1.60 mg/dL (0.5-1.4) H 04/30/23 Calcium 9.5 mg/dL (8.4-10.2) 03/25/23 Urine Creatinine 194.33 mg/dL 04/30/23 Protein/Creatinin Ratio 0.05 (<0.2) 04/30/23 Renal US 11/18/21
[2023-05-06 14:45] VITALS: BP 130/60; PULSE 80; O2SAT 98; BMI 29.9
== END 2023-05-06 15:06 | disposition home or self-care (01) ==
PROVIDERS: PCP Internal Medicine; Visit Provider Internal Medicine Nephrology
DX: N18.31 Chronic kidney disease, stage 3a (principal); N20.0 Calculus of kidney; I10 Essential (primary) hypertension; N28.1 Cyst of kidney, acquired; I70.1 Atherosclerosis of renal artery
CPT/HCPCS: 99214

== ENCOUNTER → 2023-05-06 14:32 | Outpatient (BNVA) | payer OTHER, SELFPAY | PROVIDERS: PCP Internal Medicine; Visit Provider Internal Medicine Nephrology | DX: I12.9 Hypertensive chronic kidney disease with stage 1 through stage 4 chronic kidney disease, or unspecified chronic kidney disease (principal); N18.31 Chronic kidney disease, stage 3a; N20.0 Calculus of kidney; N28.1 Cyst of kidney, acquired; I70.1 Atherosclerosis of renal artery | CPT/HCPCS: 99212 ==

== ENCOUNTER 2023-07-14 07:32 | Outpatient (REF) | payer OTHER, SELFPAY ==
[2023-07-14 09:16] LABS: PSA,Total (Free>4and<10) 2.77 ng/mL (0.00-4.00)
== END 2023-07-14 07:33 | disposition home or self-care (01) ==
LOC: HO.LAB 07:32
PROVIDERS: Visit Provider Nurse Practitioner Family
DX: R97.20 Elevated prostate specific antigen [PSA] (principal); N28.1 Cyst of kidney, acquired; N40.0 Benign prostatic hyperplasia without lower urinary tract symptoms; Z87.442 Personal history of urinary calculi; Z12.5 Encounter for screening for malignant neoplasm of prostate; Z79.899 Other long term (current) drug therapy
CPT/HCPCS: 36415; 84153

== ENCOUNTER 2023-07-14 13:52 | Outpatient (AMB) | payer OTHER, SELFPAY ==
--- NOTE | 2023-07-14 13:53 | A.OFFVIS_ITS ---
Intake Intake Visit Reasons: 4m follow up/labs Intake Note: Patient presents today for a telehealth follow up medications: Finasteride Blood thinner: None Allergies to antibiotics: None [employer] Utility Worker Required: Yes [employer] Utility Worker Name: MARY CANELA-OSITOI Allergies GABI Inhibitors Adverse Reaction (Verified 07/14/23 14:56) renal failure atorvastatin Adverse Reaction (Verified 07/14/23 14:56) myalgia rosuvastatin Adverse Reaction (Verified 07/14/23 14:56) Constipation simvastatin Adverse Reaction (Verified 07/14/23 14:56) myalgia Medication List - Last Reconciled 07/14/23 by CHERY Deutsch- finasteride 5 mg PO DAILY 90 days lisinopril-hydrochlorothiazide 20-12.5 mg 1 tab PO DAILY rosuvastatin 20 mg PO BEDTIME HPI HPI Comments History of Present Illness Details Kirill is a pleasant 77 year old Latvian speaking patient of Dr. Mccall. He has a past medical history of hypercholesteremia, hypertension, and nephrolithiasis. He is being follow-up on today via telehealth for his elevated PSA. Of note, patient was seen approximately 4 months ago at which time discussion regarding potential causes for elevated PSA were discussed. Discussed further treatment options for elevated PSA at which time patient was started on finasteride 5 mg daily. Recent PSA results reviewed with the patient today as noted and trended below. 05/11--3.0 06/16--5.8 12/14--8.0 03/17--5.9 03/17--5.6 % free PSA 27%. 07/18--2.7 Previous workup has included a retroperitoneal ultrasound noting right kidney with no calculi, and or hydronephrosis. Benign-appearing renal cyst and likely benign renal cysts measuring up to 3 cm. No imaging follow-up recommended per radiology report. Left kidney with no hydronephrosis and or calculi. The bladder is partially distended. Prevoid bladder volume is approximately 75 mL. Postvoid bladder volume is approximately 2 mL. Prostate is markedly enlarged with a volume of 136 mL. When asked patient denies any bothersome urinary issues or concerns at this time. He denies urinary urgency, urinary frequency, incontinence, nocturia, hematuria, dysuria, foul smelling urine, changes to urinary stream, flank pain, fever, and or chills. He is happy with his current voiding parameters. He denies any known family history of prostate cancer. Reports compliance with 5 mg of finasteride daily. He otherwise offers no issues or concerns at this time. [facility] Medical History High cholesterol Nephrolithiasis Hypertension Surgical History No pertinent past surgical history Family History Father No problems noted. Mother No problems noted. Social History Unable to assess alcohol history related to: Unable to respond Patient Tobacco Use Status: Never used Tobacco Review of Systems Const Reports as per HPI Eyes Reports no additional complaints ENT Reports no additional complaints Card Reports as per HPI Resp Reports no additional complaints GI Reports no additional complaints Reports as per HPI Musc Reports no additional complaints Neuro Reports no additional complaints Psych Reports no additional complaints Endo Reports no additional complaints Uri/Lymph Reports no additional complaints Aller/Immun Reports no additional complaints Physical Exam Const General: cooperative Resp Effort & Inspection: able to speak in complete sentences Psych Speech and movement: Clear speech present Attitude: cooperative Thought process: Normal thought process present Thought content: Normal thought content present Insight: Fair insight present (Psych) Judgement: Fair judgement present (Psych) Assessment & Plan Assessment & Plan (1) Elevated PSA: Code(s): R97.20 - Elevated prostate specific antigen [PSA] (2) Enlarged prostate: Code(s): N40.0 - Benign prostatic hyperplasia without lower urinary tract symptoms (3) Renal cyst: Code(s): N28.1 - Cyst of kidney, acquired Plan Recent PSA results reviewed with the patient today; as noted above. Discussed at length potential causes for elevated PSA. Continue finasteride as discussed and prescribed. Patient denies any bothersome urinary issues or concerns at this time. Patient reports be happy with current voiding parameters. Will obtain PSA in 6 months. Follow-up in 6 months with PSA to be completed prior; or sooner with any issues, concerns, and or questions. Orders: Orders Prostate Specific Antigen 6 Months R97.20 - Elevated prostate specific antigen [PSA] Patient Instructions: The patient had an opportunity to ask questions regarding the treatment plan. All questions were answered. Physical exam, labs, and imaging were discussed and reviewed in detail. As well as risks, benefits, and discussion of treatment choices. No major barriers to understanding were identified. The patient expressed understanding and agreement with the above treatment plan. The patient was made aware they should contact our office by phone for worsening of their current condition, the appearance of new symptoms, or with any questions or concerns. Compliance is encouraged with any medications and follow up testing that is ordered. It is a privilege to be allowed the opportunity to participate in? your urological care.? Again, if you have any questions or concerns If you have any questions or concerns please do not hesitate to contact me. The office is [phone]. This note is constructed using voice recognition software. While every effort has been made to ensure accuracy bundle tier and labeler errors may have been included. Yours sincerely, NAMRATA Deutsch Telehealth Telehealth Location of provider rendering services: practice address Location of patient: address on file Patient Identification confirmed using: Name, : Yes Telehealth method: voice only Patient verbally consented to treatment: Yes Patient verbally consented to billing insurance company: Yes Patient informed of any privacy concerns related to visit: Yes Minutes spent on Phone/Video with Pt.: 15 Coding Level of Care Code Tele Est Pt Level 3 (28928) Diagnoses Elevated PSA R97.20 Enlarged prostate N40.0 Renal cyst N28.1
== END 2023-07-14 14:28 | disposition home or self-care (01) ==
LOC: HO.HUSH 13:52
PROVIDERS: PCP Internal Medicine; Visit Provider Nurse Practitioner Family
DX: R97.20 Elevated prostate specific antigen [PSA] (principal); N40.0 Benign prostatic hyperplasia without lower urinary tract symptoms; N28.1 Cyst of kidney, acquired
CPT/HCPCS: 99442

== ENCOUNTER 2023-08-12 07:43 | Outpatient (REF) | payer OTHER, SELFPAY ==
[2023-08-12 09:28] LABS: Anion Gap 12 (12-20); Blood Urea Nitrogen 18 mg/dL (9-16); Carbon Dioxide 27 mmol/L (22-29); Chloride 108 mmol/L (96-108); Estimated Glomerular Filt Rate 48; Potassium 4.2 mmol/L (3.3-5.1); Sodium 143 mmol/L (135-145)
== END 2023-08-12 07:44 | disposition home or self-care (01) ==
LOC: HO.LAB 07:43
PROVIDERS: PCP Internal Medicine; Visit Provider Internal Medicine Nephrology
DX: N20.0 Calculus of kidney (principal); I12.9 Hypertensive chronic kidney disease with stage 1 through stage 4 chronic kidney disease, or unspecified chronic kidney disease; N18.30 Chronic kidney disease, stage 3 unspecified
CPT/HCPCS: 36415; 80051; 82565; 84520

== ENCOUNTER 2023-08-14 10:09 | Outpatient (AMB) | payer OTHER, SELFPAY ==
[2023-08-14 10:25] VITALS: BP 130/70; PULSE 71; O2SAT 98; BMI 30.3
--- NOTE | 2023-08-14 10:25 | HO.NEPHOV ---
HPI HPI Comments History of Present Illness Details Gurdeep is a 77-year-old male whom had the privilege of seeing in follow-up for his chronic kidney disease, hypertension and nephrolithiasis. He has been on antihypertensive medications including GABI inhibitor and diuretics for a long time. He is not a diabetic. He is compliant with his medications. He does not take any nonsteroidal anti-inflammatory medications. He has good urine output. He has no edema, nausea, vomiting, diarrhea, chest pain, shortness of breath, proximal nocturnal dyspnea or orthopnea. He has not had any recurrence of nephrolithiasis. He has no history of recent hematuria. He does not smoke or has any history of drug intake. His renal functions have been stable. [facility] Medical History High cholesterol Nephrolithiasis Hypertension Surgical History No pertinent past surgical history Family History Father No problems noted. Mother No problems noted. Social History Unable to assess alcohol history related to: Unable to respond Patient Tobacco Use Status: Never used Tobacco Vital Signs 08/14/23 10:25 Height 5 ft 4 in Weight 176 lb 6 oz BMI 30.3 BP 130/70 Blood Pressure Location Lt brachial Position Sitting Pulse 71 Pulse Source Pulse Oximeter Pulse Oximetry (%) 98 Oxygen Delivery Method Room Air Physical Exam Vital Signs: Last Vital Signs Pulse 71 08/14/23 10:25 BP 138/70 08/14/23 10:25 Pulse Ox 98 08/14/23 10:25 Oxygen Delivery Method Room Air 08/14/23 10:25 BMI result Body Mass Index 30.3 Const General: comfortable and no acute distress Orientation/consciousness: patient oriented x3 HEENT Head: Yes normocephalic Mouth: Normal oral and palatal mucosa present Eyes EOM: EOMs intact bilaterally Neck Neck: Yes supple Resp Auscultation: clear to auscultation bilaterally Cardio Jugular venous distension: no JVD Rate: regular rate GI Palpation (GI): Soft to palpation Auscultation: normal bowel sounds General: Yes no CVA tenderness Back/Spine/Pelvis Back: no CVA tenderness Skin General skin exam: no rashes or lesions noted Neuro General: patient oriented x3 and moves all extremities Extrem General: Yes no pedal edema Assessment & Plan Assessment & Plan (1) Nephrolithiasis: Code(s): N20.0 - Calculus of kidney (2) Hypertension: Code(s): I10 - Essential (primary) hypertension Qualifiers: Hypertension type: primary hypertension Qualified Code(s): I10 - Essential (primary) hypertension (3) Renal artery stenosis: Code(s): I70.1 - Atherosclerosis of renal artery (4) CKD (chronic kidney disease) stage 3, GFR 30-59 ml/min: Code(s): N18.30 - Chronic kidney disease, stage 3 unspecified Qualifiers: Chronic kidney disease stage 3 subtype: stage 3a (GFR 45-59) Qualified Code(s): N18.31 - Chronic kidney disease, stage 3a (5) Renal cyst: Code(s): N28.1 - Cyst of kidney, acquired Plan 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 He has bilateral renal artery stenosis. He does not need any intervention for his SUZY now. He is on GABI inhibitor and hydrochlorothiazide. His blood pressure has been at goal at home. He has increased his fluid intake and he adds citrate in his liquid intake. He avoids nonsteroidal anti-inflammatory medications and maintain a low-sodium diet. His renal functions are pretty stable. I will arrange a follow-up imaging of his renal arteries as well as kidneys( to look at his renal cyst and renal arteries as well), later. I did not make any medication changes today. All his questions and concerns were addressed. Orders: Orders Blood Urea Nitrogen Today I10 - Essential (primary) hypertension, I70.1 - Atherosclerosis of renal artery, N18.30 - Chronic kidney disease, stage 3 unspecified, N20.0 - Calculus of kidney, N28.1 - Cyst of kidney, acquired Electrolytes Today I10 - Essential (primary) hypertension, I70.1 - Atherosclerosis of renal artery, N18.30 - Chronic kidney disease, stage 3 unspecified, N20.0 - Calculus of kidney, N28.1 - Cyst of kidney, acquired Creatinine Today I10 - Essential (primary) hypertension, I70.1 - Atherosclerosis of renal artery, N18.30 - Chronic kidney disease, stage 3 unspecified, N20.0 - Calculus of kidney, N28.1 - Cyst of kidney, acquired Coding Level of Care Code Est Pt Level 4 (09763) Diagnoses Nephrolithiasis N20.0 Primary hypertension I10 Hypertension type: primary hypertension Renal artery stenosis I70.1 Stage 3a chronic kidney disease N18.31 Chronic kidney disease stage 3 subtype: stage 3a (GFR 45-59) Renal cyst N28.1 Results Reviewed Nephrology Results: Hgb 14.7 g/dl (14.0-18.0) 04/30/23 WBC 6.4 X10*3/uL (4.8-10.8) 04/30/23 Plt Count 228 X10*3/uL (160-400) 04/30/23 Sodium 143 mmol/L (135-145) 08/12/23 Potassium 4.2 mmol/L (3.3-5.1) 08/12/23 Chloride 108 mmol/L (96-108) 08/12/23 Carbon Dioxide 27 mmol/L (22-29) 08/12/23 BUN 18 mg/dL (9-16) H 08/12/23 Creatinine 1.42 mg/dL (0.5-1.4) H 08/12/23 Calcium 9.5 mg/dL (8.4-10.2) 03/25/23 Urine Creatinine 194.33 mg/dL 04/30/23 Protein/Creatinin Ratio 0.05 (<0.2) 04/30/23
== END 2023-08-14 10:39 | disposition home or self-care (01) ==
PROVIDERS: PCP Internal Medicine; Visit Provider Internal Medicine Nephrology
DX: N20.0 Calculus of kidney (principal); I10 Essential (primary) hypertension; I70.1 Atherosclerosis of renal artery; N18.31 Chronic kidney disease, stage 3a; N28.1 Cyst of kidney, acquired
CPT/HCPCS: 99214

== ENCOUNTER → 2023-08-14 10:09 | Outpatient (BNVA) | payer OTHER, SELFPAY | PROVIDERS: PCP Internal Medicine; Visit Provider Internal Medicine Nephrology | DX: N28.1 Cyst of kidney, acquired (principal); N20.0 Calculus of kidney; N18.31 Chronic kidney disease, stage 3a; I10 Essential (primary) hypertension; I70.1 Atherosclerosis of renal artery | CPT/HCPCS: 99212 ==

== ENCOUNTER 2023-12-15 07:36 | Outpatient (REF) | payer OTHER, SELFPAY ==
[2023-12-15 08:53] LABS: Alanine Aminotransferase 24 U/L (0-40); Albumin Level 3.8 g/dL (3.5-5.0); Alkaline Phosphatase 71 U/L (39-117); Anion Gap 12 (12-20); Aspartate Amino Transferase 19 U/L (5-37); Bilirubin Total 0.5 mg/dL (0.0-1.0); Blood Urea Nitrogen 16 mg/dL (9-16); Calcium 9.5 mg/dL (8.4-10.2); Carbon Dioxide 26 mmol/L (22-29); Chloride 107 mmol/L (96-108); Cholesterol 150 mg/dL (<200); Estimated Glomerular Filt Rate 49; Glucose Random 106 mg/dL (60-115); HDL Cholesterol 35 mg/dL (>40); LDL Cholesterol Calculated 91 mg/dL (<100); Potassium 3.7 mmol/L (3.3-5.1); Sodium 141 mmol/L (135-145); Triglycerides 122 mg/dL (<150)
== END 2023-12-15 07:37 | disposition home or self-care (01) ==
LOC: HO.LAB 07:36
PROVIDERS: PCP Internal Medicine; Visit Provider Internal Medicine
DX: I12.9 Hypertensive chronic kidney disease with stage 1 through stage 4 chronic kidney disease, or unspecified chronic kidney disease (principal); E78.00 Pure hypercholesterolemia, unspecified; K59.00 Constipation, unspecified; N40.1 Benign prostatic hyperplasia with lower urinary tract symptoms; N18.9 Chronic kidney disease, unspecified
CPT/HCPCS: 36415; 80053; 80061

== ENCOUNTER 2023-12-17 08:12 | Outpatient (REF) | payer OTHER, SELFPAY ==
[2023-12-17 09:21] LABS: Anion Gap 11 (12-20); Blood Urea Nitrogen 12 mg/dL (9-16); Carbon Dioxide 26 mmol/L (22-29); Chloride 109 mmol/L (96-108); Estimated Glomerular Filt Rate 54; Potassium 3.8 mmol/L (3.3-5.1); Sodium 142 mmol/L (135-145)
== END 2023-12-17 08:13 | disposition home or self-care (01) ==
LOC: HO.LAB 08:12
PROVIDERS: PCP Internal Medicine; Visit Provider Internal Medicine Nephrology
DX: I70.1 Atherosclerosis of renal artery (principal); I10 Essential (primary) hypertension; N20.0 Calculus of kidney; N18.30 Chronic kidney disease, stage 3 unspecified; N28.1 Cyst of kidney, acquired
CPT/HCPCS: 36415; 80051; 82565; 84520

== ENCOUNTER 2023-12-18 09:17 | Outpatient (AMB) | payer OTHER, SELFPAY ==
--- NOTE | 2023-12-18 09:35 | HO.NEPHOV_ITS ---
Vital Signs 12/18/23 09:36 Height 5 ft 4 in Weight 173 lb 4 oz BMI 29.7 BP 132/60 Blood Pressure Location Rt brachial Position Sitting Intake Visit Reasons: CKD/ 4 MO FU/ Conf Manager Monitoring Required: No Accompanied by: Self / Same As Patient Allergies GABI Inhibitors Adverse Reaction (Verified 12/18/23 09:39) renal failure atorvastatin Adverse Reaction (Verified 12/18/23 09:39) myalgia rosuvastatin Adverse Reaction (Verified 12/18/23 09:39) Constipation simvastatin Adverse Reaction (Verified 12/18/23 09:39) myalgia HPI Comments Details: Gurdeep is a 77-year-old male whom had the privilege of seeing in follow-up for his chronic kidney disease, hypertension and nephrolithiasis. He has been on antihypertensive medications including GABI inhibitor and diuretics for a long time. He is not a diabetic. He is compliant with his medications. He does not take any nonsteroidal anti-inflammatory medications. He has good urine output. He has no edema, nausea, vomiting, diarrhea, chest pain, shortness of breath, proximal nocturnal dyspnea or orthopnea. He has not had any recurrence of nephrolithiasis. He has no history of recent hematuria. He does not smoke or has any history of drug intake. His renal functions have been stable [facility] Medical History High cholesterol Nephrolithiasis Hypertension Surgical History No pertinent past surgical history Family History Father No problems noted. Mother No problems noted. Social History Unable to assess alcohol history related to: Unable to respond Patient Tobacco Use Status: Never used Tobacco Physical Exam Vital Signs: Last Vital Signs BP 132/60 12/18/23 09:36 BMI result Body Mass Index 29.7 Const General: comfortable and no acute distress Orientation/consciousness: patient oriented x3 HEENT Head: Yes normocephalic Mouth: Normal oral and palatal mucosa present Eyes EOM: EOMs intact bilaterally Neck Neck: Yes supple Resp Auscultation: clear to auscultation bilaterally Cardio Jugular venous distension: no JVD Rate: regular rate GI Palpation (GI): Soft to palpation Auscultation: normal bowel sounds General: Yes no CVA tenderness Back/Spine/Pelvis Back: no CVA tenderness Skin General skin exam: no rashes or lesions noted Neuro General: patient oriented x3 and moves all extremities Extrem General: Yes no pedal edema Results Reviewed Nephrology Results: Hgb 14.7 g/dl (14.0-18.0) 04/30/23 WBC 6.4 X10*3/uL (4.8-10.8) 04/30/23 Plt Count 228 X10*3/uL (160-400) 04/30/23 Sodium 142 mmol/L (135-145) 12/17/23 Potassium 3.8 mmol/L (3.3-5.1) 12/17/23 Chloride 109 mmol/L (96-108) H 12/17/23 Carbon Dioxide 26 mmol/L (22-29) 12/17/23 BUN 12 mg/dL (9-16) 12/17/23 Creatinine 1.29 mg/dL (0.5-1.4) 12/17/23 Calcium 9.5 mg/dL (8.4-10.2) 12/15/23 Urine Creatinine 194.33 mg/dL 04/30/23 Protein/Creatinin Ratio 0.05 (<0.2) 04/30/23 Assessment & Plan Assessment & Plan (1) CKD (chronic kidney disease) stage 3, GFR 30-59 ml/min: Code(s): N18.30 - Chronic kidney disease, stage 3 unspecified Category: Medical Qualifiers: Chronic kidney disease stage 3 subtype: stage 3a (GFR 45-59) Qualified Code(s): N18.31 - Chronic kidney disease, stage 3a (2) Nephrolithiasis: Code(s): N20.0 - Calculus of kidney Category: Medical (3) Hypertension: Code(s): I10 - Essential (primary) hypertension Category: Medical Qualifiers: Hypertension type: primary hypertension Qualified Code(s): I10 - Essential (primary) hypertension (4) Renal artery stenosis: Code(s): I70.1 - Atherosclerosis of renal artery Category: Medical Plan 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 He has bilateral renal artery stenosis. He does not need any intervention for his SUZY now. He is on GABI inhibitor and hydrochlorothiazide. His blood pressure has been at goal at home. He has increased his fluid intake and he adds citrate in his liquid intake. He avoids nonsteroidal anti-inflammatory medications and maintain a low-sodium diet. His renal functions are pretty stable. I will arrange a follow-up imaging of his renal arteries as well as kidneys( to look at his renal cyst and renal arteries as well), later. I did not make any medication changes today. All his questions and concerns were addressed. Orders: Orders Blood Urea Nitrogen 6 Months I10 - Essential (primary) hypertension, I70.1 - Atherosclerosis of renal artery, N18.31 - Chronic kidney disease, stage 3a, N20.0 - Calculus of kidney Creatinine 6 Months I10 - Essential (primary) hypertension, I70.1 - Atherosclerosis of renal artery, N18.31 - Chronic kidney disease, stage 3a, N20.0 - Calculus of kidney Electrolytes 6 Months I10 - Essential (primary) hypertension, I70.1 - Atherosclerosis of renal artery, N18.31 - Chronic kidney disease, stage 3a, N20.0 - Calculus of kidney Coding Level of Care Code Est Pt Level 4 (18509) Diagnoses Stage 3a chronic kidney disease N18.31 Chronic kidney disease stage 3 subtype: stage 3a (GFR 45-59) Nephrolithiasis N20.0 Primary hypertension I10 Hypertension type: primary hypertension Renal artery stenosis I70.1
[2023-12-18 09:36] VITALS: BP 132/60; BMI 29.7
== END 2023-12-18 10:08 | disposition home or self-care (01) ==
PROVIDERS: PCP Internal Medicine; Visit Provider Internal Medicine Nephrology
DX: N18.31 Chronic kidney disease, stage 3a (principal); N20.0 Calculus of kidney; I10 Essential (primary) hypertension; I70.1 Atherosclerosis of renal artery
CPT/HCPCS: 99214

== ENCOUNTER → 2023-12-18 09:17 | Outpatient (BNVA) | payer OTHER, SELFPAY | PROVIDERS: PCP Internal Medicine; Visit Provider Internal Medicine Nephrology | DX: I12.9 Hypertensive chronic kidney disease with stage 1 through stage 4 chronic kidney disease, or unspecified chronic kidney disease (principal); N18.31 Chronic kidney disease, stage 3a; N20.0 Calculus of kidney; I70.1 Atherosclerosis of renal artery | CPT/HCPCS: 99212 ==

== ENCOUNTER 2024-02-05 07:43 | Outpatient (REF) | payer OTHER, SELFPAY ==
[2024-02-05 08:54] LABS: Prostate Specific Antigen 2.48 ng/mL (<0.05-4.0)
== END 2024-02-05 07:44 | disposition home or self-care (01) ==
LOC: HO.LAB 07:43
PROVIDERS: PCP Internal Medicine; Visit Provider Nurse Practitioner Family
DX: R97.20 Elevated prostate specific antigen [PSA] (principal); Z12.5 Encounter for screening for malignant neoplasm of prostate
CPT/HCPCS: 36415; 84153

== ENCOUNTER 2024-02-09 13:27 | Outpatient (AMB) | payer OTHER, SELFPAY ==
--- NOTE | 2024-02-09 13:38 | A.OFFVIS_ITS ---
Intake Visit Reasons: 6m/F/U/PSA Intake Note: Patient presents today for follow up on: Elevated PSA PSA: 2.48 medications: Finasteride Blood thinner: None Allergies to antibiotics: None Development Representative Required: Yes Development Representative Name: [id number] - Daf[place] Accompanied by: Self / Same As Patient Allergies GABI Inhibitors Adverse Reaction (Verified 02/09/24 14:05) renal failure atorvastatin Adverse Reaction (Verified 02/09/24 14:05) myalgia rosuvastatin Adverse Reaction (Verified 02/09/24 14:05) Constipation simvastatin Adverse Reaction (Verified 02/09/24 14:05) myalgia Medication List - Last Reconciled 02/09/24 by NAMRATA Deutsch finasteride 5 mg PO DAILY 90 days lisinopril-hydrochlorothiazide 20-12.5 mg 1 tab PO DAILY rosuvastatin 20 mg PO BEDTIME HPI Comments Details: Kirill is a pleasant 78 year old Indonesian speaking patient of Dr. Mccall. He has a past medical history of hypercholesteremia, hypertension, and nephrolithiasis. He presents to the office today for follow-up of his elevated PSA. In discussion with the patient today reports since his last office visit here approximately 6 months ago he has had no bothersome urinary issues or concerns. He reports compliance with finasteride as prescribed. Recent PSA results reviewed with the patient today. He discusses his recent travel to [place] and helping his son plan over 400 banana tress. PSAs are as follows: 05/11 3.0, 06/16 5.8, 12/14 8.0, 03/17 5.9, 03/17 5.6 % free PSA 27%, 07/18 2.7, 02/15 2.5 Previous workup has included a retroperitoneal ultrasound 02/14 noting right kidney with no calculi, and or hydronephrosis. Benign-appearing renal cyst and likely benign renal cysts measuring up to 3 cm. No imaging follow-up recommended per radiology report. Left kidney with no hydronephrosis and or calculi. The bladder is partially distended. Prevoid bladder volume is approximately 75 mL. Postvoid bladder volume is approximately 2 mL. Prostate is markedly enlarged with a volume of 136 mL. When asked patient denies any bothersome urinary issues or concerns at this time. He denies urinary urgency, urinary frequency, incontinence, nocturia, hematuria, dysuria, foul smelling urine, changes to urinary stream, flank pain, fever, and or chills. He is happy with his current voiding parameters. He denies any known family history of prostate cancer. In office urinalysis results reviewed with the patient today. He otherwise offers no issues or concerns at this time. [facility] Medical History High cholesterol Nephrolithiasis Hypertension Surgical History No pertinent past surgical history Family History Father No problems noted. Mother No problems noted. Social History Unable to assess alcohol history related to: Unable to respond Patient Tobacco Use Status: Never used Tobacco Review of Systems Const Reports as per HPI Eyes Reports no additional complaints ENT Reports no additional complaints Card Reports as per HPI Resp Reports no additional complaints GI Reports no additional complaints Reports as per HPI Musc Reports no additional complaints Neuro Reports no additional complaints Psych Reports no additional complaints Endo Reports no additional complaints Uri/Lymph Reports no additional complaints Aller/Immun Reports no additional complaints Physical Exam Const General: cooperative, healthy appearing, comfortable, no acute distress, well developed, alert and awake Orientation/consciousness: patient oriented x3 Limitations: no limitations HEENT Head: Yes normal to inspection, Yes normocephalic and Yes atraumatic Ears: hearing grossly normal bilaterally Eyes General: appearance normal, both eyes and all related structures Neck Neck: Yes normal visual inspection and Yes trachea midline Chest Chest palpation & inspection: normal inspection of the chest Resp Effort & Inspection: normal respiratory effort and able to speak in complete sentences Cardio Rate: regular rate GI Inspection: Yes normal to inspection General: Yes no CVA tenderness Back/Spine/Pelvis Back: no CVA tenderness Skin General skin exam: no rashes or lesions noted Neuro General: patient oriented x3 Extrem General: Yes normal to inspection Psych Appearance: grossly normal and well kempt Mental Status: mental status grossly normal Speech and movement: Normal speech and movement present and Clear speech present Affect: normal affect Attitude: cooperative Thought process: Normal thought process present Thought content: Normal thought content present Insight: Fair insight present (Psych) Judgement: Fair judgement present (Psych) Results AMB Urinalysis, Automated UA Leukoctes 0 Bertin/uL Last Edit by [employer] on 02/09/24 13:48 UA Nitrite Last Edit by [employer] on 02/09/24 13:48 UA Urobilinogen 0.2 mg/dL Last Edit by [employer] on 02/09/24 13:48 UA Protein 15 mg/dL Last Edit by [employer] on 02/09/24 13:48 UA pH 6.0 Last Edit by [employer] on 02/09/24 13:48 UA Blood 0 Jason/uL Last Edit by [employer] on 02/09/24 13:48 UA Specific [place] 1.025 Last Edit by [employer] on 02/09/24 13:48 UA Ketone Last Edit by [employer] on 02/09/24 13:48 UA Bilirubin 0 mg/dL Last Edit by [employer] on 02/09/24 13:48 UA Glucose 0 mg/dL Last Edit by [employer] on 02/09/24 13:48 Results Reviewed Results Reviewed: Laboratory Last Values Urine pH (Auto) 6.0 02/09/24 13:42 Specific [place] (Auto) 1.025 02/09/24 13:42 Urine Protein (Auto) 15 mg/dL 02/09/24 13:42 Glucose (UA)(Auto) 0 mg/dL 02/09/24 13:42 Urine Blood (Auto) 0 Jason/uL 02/09/24 13:42 Urine Bilirubin (Auto) 0 mg/dL 02/09/24 13:42 Urine Urobilinogen (Auto) 0.2 mg/dL 02/09/24 13:42 Leukocyte Esterase (Auto) 0 Bertin/uL 02/09/24 13:42 Assessment & Plan Assessment & Plan (1) Renal cyst: Code(s): N28.1 - Cyst of kidney, acquired Category: Medical (2) Enlarged prostate: Code(s): N40.0 - Benign prostatic hyperplasia without lower urinary tract symptoms Category: Medical (3) Elevated PSA: Code(s): R97.20 - Elevated prostate specific antigen [PSA] Category: Medical Plan In office urinalysis results reviewed with the patient today; as noted above. Recent PSA results reviewed with the patient today; as noted above. Patient currently denies any bothersome urinary issues or concerns. He reports compliance with finasteride 5 mg daily; will continue. He reports be happy with current voiding parameters. Will continue with surveillance monitoring of PSA. Follow-up in 6 months with PSA to be completed prior; sooner with any issues, concerns, and or questions. Orders: Orders Prostate Specific Antigen 6 Months N40.0 - Benign prostatic hyperplasia without lower urinary tract symptoms, R97.20 - Elevated prostate specific antigen [PSA] AMB Urinalysis Automated Today Z13.9 - Encounter for screening, unspecified Patient Instructions: The patient had an opportunity to ask questions regarding the treatment plan. All questions were answered. Physical exam, labs, and imaging were discussed and reviewed in detail. As well as risks, benefits, and discussion of treatment choices. No major barriers to understanding were identified. The patient expressed understanding and agreement with the above treatment plan. The patient was made aware they should contact our office by phone for worsening of their current condition, the appearance of new symptoms, or with any questions or concerns. Compliance is encouraged with any medications and follow up testing that is ordered. It is a privilege to be allowed the opportunity to participate in? your urological care.? Again, if you have any questions or concerns If you have any questions or concerns please do not hesitate to contact me. The office is [phone]. This note is constructed using voice recognition software. While every effort has been made to ensure accuracy accounting teacher errors may have been included. Yours sincerely, NAMRATA Deutsch Coding Level of Care Code Est Pt Level 3 (74495) Complex EM visit Add On G2211 Diagnoses Renal cyst N28.1 Enlarged prostate N40.0 Elevated PSA R97.20
== END 2024-02-09 14:10 | disposition home or self-care (01) ==
PROVIDERS: PCP Internal Medicine; Visit Provider Nurse Practitioner Family
DX: N28.1 Cyst of kidney, acquired (principal); N40.0 Benign prostatic hyperplasia without lower urinary tract symptoms; R97.20 Elevated prostate specific antigen [PSA]; Z13.9 Encounter for screening, unspecified
CPT/HCPCS: 99213; G2211

== ENCOUNTER → 2024-02-09 13:27 | Outpatient (BNVA) | payer OTHER, SELFPAY | PROVIDERS: PCP Internal Medicine; Visit Provider Nurse Practitioner Family | DX: R97.20 Elevated prostate specific antigen [PSA] (principal); N28.1 Cyst of kidney, acquired; N40.0 Benign prostatic hyperplasia without lower urinary tract symptoms; Z87.442 Personal history of urinary calculi | CPT/HCPCS: 81003; 99212 ==

== ENCOUNTER 2024-05-30 07:50 | Outpatient (REF) | payer OTHER, SELFPAY ==
[2024-05-30 09:24] LABS: Anion Gap 11 (12-20); Blood Urea Nitrogen 20 mg/dL (9-16); Carbon Dioxide 26 mmol/L (22-29); Chloride 110 mmol/L (96-108); Estimated Glomerular Filt Rate 44; Potassium 4.1 mmol/L (3.3-5.1); Sodium 143 mmol/L (135-145)
== END 2024-05-30 07:51 | disposition home or self-care (01) ==
LOC: HO.LAB 07:50
PROVIDERS: PCP Internal Medicine; Visit Provider Internal Medicine Nephrology
DX: I10 Essential (primary) hypertension (principal); I70.1 Atherosclerosis of renal artery; N20.0 Calculus of kidney; N18.31 Chronic kidney disease, stage 3a; N28.1 Cyst of kidney, acquired
CPT/HCPCS: 36415; 80051; 82565; 84520; 99212

== ENCOUNTER 2024-05-30 13:23 | Outpatient (AMB) | payer OTHER, SELFPAY ==
--- NOTE | 2024-05-30 13:48 | HO.NEPHOV ---
Vital Signs 05/30/24 13:49 Height 5 ft 4 in Weight 169 lb 8 oz BMI 29.1 BP 130/60 Blood Pressure Location Rt brachial Position Sitting Intake Visit Reasons: 6 mon follow up/ LVM Professor Of Marketing Required: Yes Professor Of Marketing Language: Snowboarding Instructor Services: Professor Of Marketing Offered & Declined ([facility] [place] silverware washer services refused ) Accompanied by: Self / Same As Patient Allergies GABI Inhibitors Adverse Reaction (Verified 05/30/24 13:49) renal failure atorvastatin Adverse Reaction (Verified 05/30/24 13:49) myalgia rosuvastatin Adverse Reaction (Verified 05/30/24 13:49) Constipation simvastatin Adverse Reaction (Verified 05/30/24 13:49) myalgia HPI Comments Details: Gurdeep is a 77-year-old male whom I had the privilege of seeing in follow-up for his chronic kidney disease, hypertension and nephrolithiasis. He has been on antihypertensive medications including GABI inhibitor and diuretics for a long time. He is not a diabetic. He is compliant with his medications. He does not take any nonsteroidal anti-inflammatory medications. He has good urine output. He has no edema, nausea, vomiting, diarrhea, chest pain, shortness of breath, proximal nocturnal dyspnea or orthopnea. He has not had any recurrence of nephrolithiasis. He has no history of recent hematuria. He does not smoke or has any history of drug intake. His renal functions have been stable [facility] Medical History High cholesterol Nephrolithiasis Hypertension Surgical History No pertinent past surgical history Family History Father No problems noted. Mother No problems noted. Social History Unable to assess alcohol history related to: Unable to respond Patient Tobacco Use Status: Never used Tobacco Review of Systems Const All systems reviewed & are unremarkable except as noted in HPI and below Physical Exam Vital Signs: Last Vital Signs BP 130/60 05/30/24 13:49 BMI result Body Mass Index 29.1 Const General: comfortable and no acute distress Orientation/consciousness: patient oriented x3 HEENT Head: Yes normocephalic Mouth: Normal oral and palatal mucosa present Eyes EOM: EOMs intact bilaterally Neck Neck: Yes supple Resp Auscultation: clear to auscultation bilaterally Cardio Jugular venous distension: no JVD Rate: regular rate GI Palpation (GI): Soft to palpation Auscultation: normal bowel sounds General: Yes no CVA tenderness Back/Spine/Pelvis Back: no CVA tenderness Skin General skin exam: no rashes or lesions noted Neuro General: patient oriented x3 and moves all extremities Extrem General: Yes no pedal edema Results Reviewed Nephrology Results: Sodium 143 mmol/L (135-145) 05/30/24 Potassium 4.1 mmol/L (3.3-5.1) 05/30/24 Chloride 110 mmol/L (96-108) H 05/30/24 Carbon Dioxide 26 mmol/L (22-29) 05/30/24 BUN 20 mg/dL (9-16) H 05/30/24 Creatinine 1.53 mg/dL (0.5-1.4) H 05/30/24 Calcium 9.5 mg/dL (8.4-10.2) 12/15/23 Assessment & Plan Assessment & Plan (1) Renal artery stenosis: Code(s): I70.1 - Atherosclerosis of renal artery Category: Medical (2) Hypertension: Code(s): I10 - Essential (primary) hypertension Category: Medical Qualifiers: Hypertension type: primary hypertension Qualified Code(s): I10 - Essential (primary) hypertension (3) Nephrolithiasis: Code(s): N20.0 - Calculus of kidney Category: Medical (4) CKD (chronic kidney disease) stage 3, GFR 30-59 ml/min: Code(s): N18.30 - Chronic kidney disease, stage 3 unspecified Category: Medical Qualifiers: Chronic kidney disease stage 3 subtype: stage 3a (GFR 45-59) Qualified Code(s): N18.31 - Chronic kidney disease, stage 3a (5) Renal cyst: Code(s): N28.1 - Cyst of kidney, acquired Category: Medical Plan 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 He has bilateral renal artery stenosis. He does not need any intervention for his SUZY now. He is on GABI inhibitor and hydrochlorothiazide. His blood pressure has been at goal at home. He has increased his fluid intake and he adds citrate in his liquid intake. He avoids nonsteroidal anti-inflammatory medications and maintain a low-sodium diet. His renal functions are pretty stable. I ordered a follow-up imaging of his renal arteries as well as kidneys( to look at his renal cyst and renal arteries as well), later. I did not make any medication changes today. All his questions and concerns were addressed Orders: Orders US renal doppler 1 Month I70.1 - Atherosclerosis of renal artery Creatinine 3 Months I10 - Essential (primary) hypertension, I70.1 - Atherosclerosis of renal artery, N18.31 - Chronic kidney disease, stage 3a, N20.0 - Calculus of kidney, N28.1 - Cyst of kidney, acquired Electrolytes 3 Months I10 - Essential (primary) hypertension, I70.1 - Atherosclerosis of renal artery, N18.31 - Chronic kidney disease, stage 3a, N20.0 - Calculus of kidney, N28.1 - Cyst of kidney, acquired Blood Urea Nitrogen 3 Months I10 - Essential (primary) hypertension, I70.1 - Atherosclerosis of renal artery, N18.31 - Chronic kidney disease, stage 3a, N20.0 - Calculus of kidney, N28.1 - Cyst of kidney, acquired Coding Level of Care Code Est Pt Level 4 (40626) Diagnoses Renal artery stenosis I70.1 Primary hypertension I10 Hypertension type: primary hypertension Nephrolithiasis N20.0 Stage 3a chronic kidney disease N18.31 Chronic kidney disease stage 3 subtype: stage 3a (GFR 45-59) Renal cyst N28.1
[2024-05-30 13:49] VITALS: BP 130/60; BMI 29.1
== END 2024-05-30 14:04 | disposition home or self-care (01) ==
PROVIDERS: PCP Internal Medicine; Visit Provider Internal Medicine Nephrology
DX: I70.1 Atherosclerosis of renal artery (principal); I12.9 Hypertensive chronic kidney disease with stage 1 through stage 4 chronic kidney disease, or unspecified chronic kidney disease; N18.31 Chronic kidney disease, stage 3a; N20.0 Calculus of kidney; N28.1 Cyst of kidney, acquired
CPT/HCPCS: 99214

== ENCOUNTER 2024-06-13 09:06 | Outpatient (REF) | payer OTHER, SELFPAY ==
[2024-06-13 10:48] LABS: Alanine Aminotransferase 21 U/L (0-40); Albumin Level 3.9 g/dL (3.5-5.0); Alkaline Phosphatase 73 U/L (39-117); Anion Gap 6 (12-20); Aspartate Amino Transferase 20 U/L (5-37); Bilirubin Total 0.3 mg/dL (0.0-1.0); Blood Urea Nitrogen 17 mg/dL (9-16); Carbon Dioxide 31 mmol/L (22-29); Chloride 107 mmol/L (96-108); Cholesterol 244 mg/dL (<200); Estimated Glomerular Filt Rate 49; Glucose Random 106 mg/dL (60-115); HDL Cholesterol 34 mg/dL (>40); LDL Cholesterol Calculated 183 mg/dL (<100); Potassium 3.8 mmol/L (3.3-5.1); Sodium 140 mmol/L (135-145); Total Protein 7.6 g/dL (6.5-8.0); Triglycerides 135 mg/dL (<150)
[2024-06-13 10:56] LABS: Prostate Specific Antigen 2.76 ng/mL (<0.05-4.0)
== END 2024-06-13 09:07 | disposition home or self-care (01) ==
LOC: HO.LAB 09:06
PROVIDERS: PCP Internal Medicine; Visit Provider Internal Medicine
DX: E78.00 Pure hypercholesterolemia, unspecified (principal); I12.9 Hypertensive chronic kidney disease with stage 1 through stage 4 chronic kidney disease, or unspecified chronic kidney disease; R97.20 Elevated prostate specific antigen [PSA]; Z68.30 Body mass index [BMI] 30.0-30.9, adult; Z12.5 Encounter for screening for malignant neoplasm of prostate
CPT/HCPCS: 36415; 80053; 80061; 84153

== ENCOUNTER 2024-07-06 08:18 | Outpatient (REF) | payer OTHER, SELFPAY ==
--- NOTE | ~2024-07-06 | US_ITS ---
EXAMINATION: US DOPPLER BILATERAL KIDNEYS CLINICAL INFORMATION: Atherosclerosis of renal artery. COMPARISON: 12/06/2022, 11/18/2021. TECHNIQUE: Ultrasound bilateral kidneys with color Doppler imaging and spectral analysis was performed of the main renal and segmental arteries. FINDINGS: RENAL MEASUREMENTS: Right: 10.2 x 5.0 x 5.3 cm (Sag x AP x TV); there are 2 simple cysts, the larger in the midpole measuring 2.8 x 2.5 x 2.7 cm. Left: 10.0 x 4.6 x 4.2 cm (Sag x AP x TV); prominent column of Jerel. There is a mid pole tiny cortical echogenic focus, likely calcification. This is nonspecific, doubtful clinical significance. The renal parenchyma appears normal. No hydronephrosis or nephrolithiasis. No suspicious masses. Spectral Doppler analysis: Right Kidney: -Peak systolic velocity in the proximal right renal artery = 134 cm/s. Normal waveforms. -Peak systolic velocity in the mid right renal artery = 109 cm/s. Normal waveforms. -Peak systolic velocity in the distal right renal artery = the 2.4 cm/s. Normal waveforms. -Patent right renal vein. -Upper pole interlobar artery resistive index of 0.76. -Midpole interlobar artery resistive index of 0.76. -Lower pole interlobar artery resistive index of 0.75. RAR right = 1.44 Left Kidney: -Peak systolic velocity in the proximal left renal artery = 167 cm/s. Normal waveforms. -Peak systolic velocity in the mid left renal artery = 95 cm/s. Normal waveforms. -Peak systolic velocity in the distal left renal artery = 77 cm/s. Normal waveforms. -Patent left renal vein. -Upper pole interlobar artery resistive index of 0.71. -Mid pole interlobar artery resistive index of 0.78. -lower pole interlobar artery resistive index of 0.75. RAR left = 1.8 Aorta: -Peak systolic velocity = 93 cm/s. US/US renal doppler IMPRESSION: 1. No evidence of renal artery stenosis or abnormal waveforms bilaterally on color/spectral Doppler examination (based on peak systolic velocities and resistive indices). 2. Renal parenchyma is normal aside from 2 right simple cysts measuring up to 0.8 cm. No masses or hydronephrosis. Electronically signed by: Jeremy Hoyt MD 07/06/2024 10:33 AM EST
--- OUTSIDE RECORDS SUMMARY | 2024-07-06 08:49 | XMS_ITS | Clinical Summary ---
Author Organization [facility] Address [address] [place] [address] Phone Care Team Providers Care Shirt Presser Name Role Phone Rita Maya MD Primary Care Provider [phone] Allergies No known active allergies Medications amLODIPine (NORVASC) 10 MG tablet Take 10 mg by mouth 1 (one) time each day 07/20/2021 Active lisinopril-hydro CHLOROthiazide (PRINZIDE,ZESTOR ETIC) 20-12.5 MG per tablet Take 1 tablet by mouth 1 (one) time each day 07/20/2021 Active rosuvastatin (CRESTOR) 20 MG tablet Take 20 mg by mouth 1 (one) time each day 07/20/2021 Active Active Problems Problem Noted Date Diagnosed Date Hypertension 12/18/2021 Stage 3a chronic kidney disease 12/18/2021 Renal stone 12/18/2021 Cyst of kidney 12/18/2021 Essential (primary) hypertension 09/25/2021 Family History Relation Status Comments Father Mother Social History Tobacco Use Types Packs/Day Years Used Date Smoking Tobacco: Never Smokeless Tobacco: Never Tobacco Cessation:Counseling Given: Not Answered Alcohol Use Standard Drinks/Week Comments Yes 0 (1 standard drink = 0.6 oz pur e alcohol) occasionally Sex and Gender Information Value Date Recorded Sex Assigned at Not on file Legal Sex Male 2:13 PM EST Gender Identity Not on file Sexual Orientation Not on file Last Filed Vital Signs Vital Sign Reading Time Taken Comments Blood Pressure 130/62 01/07/2023 2:39 PM EDT Pulse 69 01/07/2023 2:39 PM EDT Temperature - - Respiratory Rate - - Oxygen Saturation 97% 09/25/2021 2:47 PM EDT Inhaled Oxygen Concentration - - Weight 80.6 kg (177 lb 12.8 oz) 01/07/2023 2:39 PM EDT Height - - Body Mass Index - - Plan of Treatment Health Maintenance Due Date Last Done Comments Pneumococcal Vaccine: 65+ Ye ars (1 of 2 - PCV) 1951 Influenza Vaccine (#1) 2024 Hepatitis B Vaccine Aged Out No longe r eligible based on patient's age to complete this topic Insurance [facility] ([id number]) [facility] ([id number]) Care Teams Shirt Presser Relationship Specialty Start Date End Date Rita Maya MD [address] [place] [address] [address] [place], [place] PCP - General Internal Medicine 07/10/21
== END 2024-07-06 08:19 | disposition home or self-care (01) ==
LOC: HO.US 08:18
PROVIDERS: PCP Internal Medicine; Visit Provider Internal Medicine Nephrology
DX: I70.1 Atherosclerosis of renal artery (principal)
CPT/HCPCS: 93975

== ENCOUNTER → 2024-07-06 08:20 | Outpatient (BNV) | payer OTHER, SELFPAY | PROVIDERS: PCP Internal Medicine; Visit Provider Radiology Diagnostic Radiology | DX: N28.1 Cyst of kidney, acquired (principal) | CPT/HCPCS: 93975 ==

== ENCOUNTER 2024-08-06 08:07 | Outpatient (REF) | payer OTHER, SELFPAY ==
[2024-08-06 09:22] LABS: Prostate Specific Antigen 2.13 ng/mL (<0.05-4.0)
== END 2024-08-06 08:08 | disposition home or self-care (01) ==
LOC: HO.LAB 08:07
PROVIDERS: PCP Internal Medicine; Visit Provider Nurse Practitioner Family
DX: R97.20 Elevated prostate specific antigen [PSA] (principal); N40.0 Benign prostatic hyperplasia without lower urinary tract symptoms; Z12.5 Encounter for screening for malignant neoplasm of prostate
CPT/HCPCS: 36415; 84153

== ENCOUNTER 2024-08-08 13:06 | Outpatient (AMB) | payer OTHER, SELFPAY ==
--- NOTE | 2024-08-08 13:33 | MHC.OFFVIS ---
Intake Visit Reasons: 6m/PSA Intake Note: Patient presents today for follow up on: Elevated PSA PSA: 2.76 medications: Finasteride Blood thinner: None Allergies to antibiotics: None Watershed Manager Required: Yes Watershed Manager Services: Watershed Manager Present Watershed Manager Name: [id number] Accompanied by: Self / Same As Patient Allergies GABI Inhibitors Adverse Reaction (Verified 08/08/24 13:59) renal failure atorvastatin Adverse Reaction (Verified 08/08/24 13:59) myalgia rosuvastatin Adverse Reaction (Verified 08/08/24 13:59) Constipation simvastatin Adverse Reaction (Verified 08/08/24 13:59) myalgia Medication List - Last Reconciled 08/08/24 by NAMRATA Deutsch finasteride 5 mg PO DAILY 90 days lisinopril-hydrochlorothiazide 20-12.5 mg 1 tab PO DAILY rosuvastatin 20 mg PO BEDTIME HPI Comments Details: Kirill is a pleasant 79 year old Yoruba speaking patient of Dr. Mccall. He has a past medical history of hypercholesteremia, hypertension, and nephrolithiasis. He presents to the office today for follow-up of his elevated PSA. In discussion with the patient today he reports to be doing and feeling well. He denies having had any bothersome urinary issues or concerns since his last office visit here. He reports compliance with finasteride as prescribed. Recent PSA results reviewed with the patient today as noted and trended below. 05/11 3.0, 06/16 5.8, 12/14 8.0, 03/17 5.9, 03/17 5.6 % free PSA 27%, 07/18 2.7, 02/15 2.5, 08/16 2.1 Previous workup has included a retroperitoneal ultrasound 02/14 noting right kidney with no calculi, and or hydronephrosis. Benign-appearing renal cyst and likely benign renal cysts measuring up to 3 cm. No imaging follow-up recommended per radiology report. Left kidney with no hydronephrosis and or calculi. The bladder is partially distended. Prevoid bladder volume is approximately 75 mL. Postvoid bladder volume is approximately 2 mL. Prostate is markedly enlarged with a volume of 136 mL. When asked patient denies any bothersome urinary issues or concerns at this time. He denies urinary urgency, urinary frequency, incontinence, nocturia, hematuria, dysuria, foul smelling urine, changes to urinary stream, flank pain, fever, and or chills. He is happy with his current voiding parameters. He denies any known family history of prostate cancer. In office urinalysis results reviewed with the patient today. He otherwise offers no issues or concerns at this time. [facility] Medical History High cholesterol Nephrolithiasis Hypertension Surgical History No pertinent past surgical history Family History Father No problems noted. Mother No problems noted. Social History Unable to assess alcohol history related to: Unable to respond Patient Tobacco Use Status: Never used Tobacco Review of Systems Const Reports as per HPI Eyes Reports no additional complaints ENT Reports no additional complaints Card Reports as per HPI Resp Reports no additional complaints GI Reports no additional complaints Reports as per HPI Musc Reports no additional complaints Neuro Reports no additional complaints Psych Reports no additional complaints Endo Reports no additional complaints Uri/Lymph Reports no additional complaints Aller/Immun Reports no additional complaints Physical Exam Const General: cooperative, healthy appearing, comfortable, no acute distress, well developed, alert and awake Orientation/consciousness: patient oriented x3 Limitations: language barrier HEENT Head: Yes normal to inspection, Yes normocephalic and Yes atraumatic Ears: hearing grossly normal bilaterally Eyes General: appearance normal, both eyes and all related structures Neck Neck: Yes normal visual inspection and Yes trachea midline Chest Chest palpation & inspection: normal inspection of the chest Resp Effort & Inspection: normal respiratory effort and able to speak in complete sentences Cardio Rate: regular rate GI Inspection: Yes normal to inspection General: Yes no CVA tenderness Back/Spine/Pelvis Back: no CVA tenderness Skin General skin exam: no rashes or lesions noted Neuro General: patient oriented x3 Extrem General: Yes normal to inspection Psych Appearance: grossly normal and well kempt Mental Status: mental status grossly normal Speech and movement: Normal speech and movement present and Clear speech present Affect: normal affect Attitude: cooperative Thought process: Normal thought process present Thought content: Normal thought content present Insight: Fair insight present (Psych) Judgement: Fair judgement present (Psych) Results AMB Urinalysis, Automated UA Leukoctes 0 Bertin/uL Last Edit by Jose Guadalupe Epstein on 08/08/24 13:40 UA Nitrite Negative Last Edit by Jose Guadalupe Epstein on 08/08/24 13:40 UA Urobilinogen 0.2 mg/dL Last Edit by Jose Guadalupe Epstein on 08/08/24 13:40 UA Protein 15 mg/dL Last Edit by HealthStream[employer] Epstein on 08/08/24 13:40 UA pH 6.0 Last Edit by HealthStreammaribel LimeTraytrever on 08/08/24 13:40 UA Blood 0 Jason/uL Last Edit by Sifttrever on 08/08/24 13:40 UA Specific [place] 1.015 Last Edit by [employer]Stream[employer]ibel LimeTraytrever on 08/08/24 13:40 UA Ketone Negative Last Edit by [employer]Stream[employer]ibel LimeTraytrever on 08/08/24 13:40 UA Bilirubin 0 mg/dL Last Edit by Sifttrever on 08/08/24 13:40 UA Glucose 0 mg/dL Last Edit by [employer]Stream[employer]ibel LimeTraytrever on 08/08/24 13:40 Results Reviewed Results Reviewed: Laboratory Last Values Urine pH (Auto) 6.0 08/08/24 13:38 Specific [place] (Auto) 1.015 08/08/24 13:38 Urine Protein (Auto) 15 mg/dL 08/08/24 13:38 Glucose (UA)(Auto) 0 mg/dL 08/08/24 13:38 Urine Ketones (Auto) Negative 08/08/24 13:38 Urine Blood (Auto) 0 Jason/uL 08/08/24 13:38 Urine Nitrite (Auto) Negative 08/08/24 13:38 Urine Bilirubin (Auto) 0 mg/dL 08/08/24 13:38 Urine Urobilinogen (Auto) 0.2 mg/dL 08/08/24 13:38 Leukocyte Esterase (Auto) 0 Bertin/uL 08/08/24 13:38 Assessment & Plan Assessment & Plan (1) Nephrolithiasis: Code(s): N20.0 - Calculus of kidney Category: Medical (2) Renal cyst: Code(s): N28.1 - Cyst of kidney, acquired Category: Medical (3) Enlarged prostate: Code(s): N40.0 - Benign prostatic hyperplasia without lower urinary tract symptoms Category: Medical (4) Elevated PSA: Code(s): R97.20 - Elevated prostate specific antigen [PSA] Category: Medical (5) Lower urinary tract symptoms (LUTS): Code(s): R39.9 - Unspecified symptoms and signs involving the genitourinary system Category: Medical Plan In office urinalysis results reviewed with the patient today; as noted above. Recent PSA results reviewed with the patient today; as noted above. Continue finasteride; as discussed and prescribed; refill provided. Patient currently denies any bothersome urinary issues. He reports be happy with current voiding parameters. Will continue with surveillance monitoring. Will obtain PSA in 1 year. Follow-up in 1 year with PSA and PVR; or sooner with any issues, concerns, and or questions. Orders: Orders Prostate Specific Antigen 1 Year N40.0 - Benign prostatic hyperplasia without lower urinary tract symptoms, R97.20 - Elevated prostate specific antigen [PSA] AMB Urinalysis Automated Today Z13.9 - Encounter for screening, unspecified Medications: Refilled finasteride 5 mg PO DAILY 90 tabs 4RF 90 days N13.8 - Other obstructive and reflux uropathy, N40.1 - Benign prostatic hyperplasia with lower urinary tract symptoms, R33.9 - Retention of urine, unspecified Patient Instructions: The patient had an opportunity to ask questions regarding the treatment plan. All questions were answered. Physical exam, labs, and imaging were discussed and reviewed in detail. As well as risks, benefits, and discussion of treatment choices. No major barriers to understanding were identified. The patient expressed understanding and agreement with the above treatment plan. The patient was made aware they should contact our office by phone for worsening of their current condition, the appearance of new symptoms, or with any questions or concerns. Compliance is encouraged with any medications and follow up testing that is ordered. It is a privilege to be allowed the opportunity to participate in? your urological care.? Again, if you have any questions or concerns If you have any questions or concerns please do not hesitate to contact me. The office is [phone]. This note is constructed using voice recognition software. While every effort has been made to ensure accuracy seal skinner errors may have been included. Yours sincerely, NAMRATA Deutsch Coding Level of Care Code Est Pt Level 3 (19973) Complex EM visit Add On G2211 Diagnoses Nephrolithiasis N20.0 Renal cyst N28.1 Enlarged prostate N40.0 Elevated PSA R97.20 Lower urinary tract symptoms (LUTS) R39.9
--- OUTSIDE RECORDS SUMMARY | 2024-08-08 15:17 | XMS_ITS | Clinical Summary ---
Author Organization [facility] Address [address] [place] [address] Phone Care Team Providers Care Afterschool Babysitter Name Role Phone Rita Maya MD Primary Care Provider [phone]- [phone] Allergies No known active allergies Medications amLODIPine [...] patient's age to complete this topic Insurance [facility] ([id number]) [facility] ([id number]) Care Teams Afterschool Babysitter Relationship Specialty Start Date End Date Rita Maya MD [address] [place] [address] [address] [place], [place] PCP - General Internal Medicine 07/10/21
== END 2024-08-08 14:00 | disposition home or self-care (01) ==
LOC: HO.HUSH 13:07
PROVIDERS: PCP Internal Medicine; Visit Provider Nurse Practitioner Family
DX: N20.0 Calculus of kidney (principal); N28.1 Cyst of kidney, acquired; N40.0 Benign prostatic hyperplasia without lower urinary tract symptoms; R97.20 Elevated prostate specific antigen [PSA]; R39.9 Unspecified symptoms and signs involving the genitourinary system; Z13.9 Encounter for screening, unspecified
CPT/HCPCS: 99213; G2211

== ENCOUNTER → 2024-08-08 13:06 | Outpatient (BNVA) | payer OTHER, SELFPAY | PROVIDERS: PCP Internal Medicine; Visit Provider Nurse Practitioner Family | DX: N20.0 Calculus of kidney (principal); N40.0 Benign prostatic hyperplasia without lower urinary tract symptoms; N28.1 Cyst of kidney, acquired; R97.20 Elevated prostate specific antigen [PSA]; R39.9 Unspecified symptoms and signs involving the genitourinary system | CPT/HCPCS: 81003; 99212 ==

== ENCOUNTER 2024-09-13 07:46 | Outpatient (REF) | payer OTHER, SELFPAY ==
--- OUTSIDE RECORDS SUMMARY | 2024-09-13 07:49 | XMS_ITS | Clinical Summary ---
Author Organization [facility] Address [address] [place] [address] Phone Care Team Providers Care Paralegals Name Role Phone Rita Maya MD Primary Care Provider [phone]- [phone] Allergies No known active allergies Medications amLODIPine [...] Due Date Last Done Comments Pneumococcal Vaccine: 50+ Ye ars (1 of 2 - PCV) 1964 Influenza Vaccine (Season Ended) 2025 Hepatitis B Vaccine Aged Out No longe r eligible based on patient's age to complete this topic Insurance [facility] ([id number]) [facility] ([id number]) Care Teams Paralegals Relationship Specialty Start Date End Date Rita Maya MD [address] [place] [address] [address] [place], [place] PCP - General Internal Medicine 07/10/21
[2024-09-13 10:01] LABS: Alanine Aminotransferase 36 U/L (0-40); Alkaline Phosphatase 80 U/L (39-117); Anion Gap 10 (12-20); Aspartate Amino Transferase 34 U/L (5-37); Bilirubin Total 0.5 mg/dL (0.0-1.0); Blood Urea Nitrogen 19 mg/dL (9-16); Calcium 9.3 mg/dL (8.4-10.2); Carbon Dioxide 29 mmol/L (22-29); Chloride 106 mmol/L (96-108); Cholesterol 129 mg/dL (<200); Estimated Glomerular Filt Rate 47; Glucose Random 94 mg/dL (60-115); HDL Cholesterol 34 mg/dL (>40); LDL Cholesterol Calculated 79 mg/dL (<100); Potassium 3.9 mmol/L (3.3-5.1); Sodium 141 mmol/L (135-145); Triglycerides 83 mg/dL (<150)
== END 2024-09-13 07:47 | disposition home or self-care (01) ==
LOC: HO.LAB 07:46
PROVIDERS: PCP Internal Medicine; Visit Provider Internal Medicine
DX: E78.00 Pure hypercholesterolemia, unspecified (principal); I12.9 Hypertensive chronic kidney disease with stage 1 through stage 4 chronic kidney disease, or unspecified chronic kidney disease; R97.20 Elevated prostate specific antigen [PSA]; Z68.30 Body mass index [BMI] 30.0-30.9, adult
CPT/HCPCS: 36415; 80053; 80061

== ENCOUNTER 2024-10-11 07:28 | Outpatient (REF) | payer OTHER, SELFPAY ==
--- OUTSIDE RECORDS SUMMARY | 2024-10-11 07:31 | XMS_ITS | Clinical Summary ---
Author Organization [facility] Address [address] [place] [address] Phone Care Team Providers Care Safety Lead Name Role Phone Rita Maya MD Primary Care Provider [phone]- [phone] Allergies No known active allergies Medications amLODIPine [...] patient's age to complete this topic Insurance [facility] ([id number]) [facility] ([id number]) Care Teams Safety Lead Relationship Specialty Start Date End Date Rita Maya MD [address] [place] [address] [address] [place], [place] PCP - General Internal Medicine 07/10/21
[2024-10-11 08:23] LABS: Anion Gap 9 (12-20); Blood Urea Nitrogen 17 mg/dL (9-16); Carbon Dioxide 27 mmol/L (22-29); Chloride 108 mmol/L (96-108); Estimated Glomerular Filt Rate 52; Potassium 3.9 mmol/L (3.3-5.1); Sodium 140 mmol/L (135-145)
== END 2024-10-11 07:29 | disposition home or self-care (01) ==
LOC: HO.LAB 07:28
PROVIDERS: Visit Provider Internal Medicine Nephrology
DX: I12.9 Hypertensive chronic kidney disease with stage 1 through stage 4 chronic kidney disease, or unspecified chronic kidney disease (principal); I70.1 Atherosclerosis of renal artery; N20.0 Calculus of kidney; N18.31 Chronic kidney disease, stage 3a; N28.1 Cyst of kidney, acquired
CPT/HCPCS: 36415; 80051; 82565; 84520

== ENCOUNTER 2024-10-12 11:39 | Outpatient (AMB) | payer OTHER, SELFPAY ==
--- NOTE | 2024-10-12 12:20 | HO.NEPHOV ---
Vital Signs 10/12/24 12:21 Height 5 ft 4 in Weight 173 lb 8 oz BMI 29.8 BP 136/60 Blood Pressure Location Lt brachial Position Sitting Pulse 71 Pulse Source Pulse Oximeter Pulse Oximetry (%) 99 Oxygen Delivery Method Room Air Intake Visit Reasons: 4mon follow-up w/labs-LVM Product Safety Compliance Leader Required: No Accompanied by: Self / Same As Patient Allergies GABI Inhibitors Adverse Reaction (Verified 10/12/24 12:21) renal failure atorvastatin Adverse Reaction (Verified 10/12/24 12:21) myalgia rosuvastatin Adverse Reaction (Verified 10/12/24 12:21) Constipation simvastatin Adverse Reaction (Verified 10/12/24 12:21) myalgia HPI Comments Details: Gurdeep is a 79-year-old male whom I had the privilege of seeing in follow-up for his chronic kidney disease, hypertension and nephrolithiasis. He has been on antihypertensive medications including GABI inhibitor and diuretics for a long time. He is not a diabetic. He is compliant with his medications. He does not take any nonsteroidal anti-inflammatory medications. He has good urine output. He has no edema, nausea, vomiting, diarrhea, chest pain, shortness of breath, proximal nocturnal dyspnea or orthopnea. He has not had any recurrence of nephrolithiasis. He has no history of recent hematuria. He does not smoke or has any history of drug intake. His renal functions have been stable [facility] Medical History High cholesterol Nephrolithiasis Hypertension Surgical History No pertinent past surgical history Family History Father No problems noted. Mother No problems noted. Social History Unable to assess alcohol history related to: Unable to respond Patient Tobacco Use Status: Never used Tobacco Review of Systems Const All systems reviewed & are unremarkable except as noted in HPI and below Physical Exam Vital Signs: Last Vital Signs Pulse 71 10/12/24 12:21 BP 136/60 10/12/24 12:21 Pulse Ox 99 10/12/24 12:21 Oxygen Delivery Method Room Air 10/12/24 12:21 BMI result Body Mass Index 29.8 Const General: comfortable and no acute distress Orientation/consciousness: patient oriented x3 HEENT Head: Yes normocephalic Mouth: Normal oral and palatal mucosa present Eyes EOM: EOMs intact bilaterally Neck Neck: Yes supple Resp Auscultation: clear to auscultation bilaterally Cardio Jugular venous distension: no JVD Rate: regular rate GI Palpation (GI): Soft to palpation Auscultation: normal bowel sounds General: Yes no CVA tenderness Back/Spine/Pelvis Back: no CVA tenderness Skin General skin exam: no rashes or lesions noted Neuro General: patient oriented x3 and moves all extremities Extrem General: Yes no pedal edema Results Reviewed Nephrology Results: Sodium 140 mmol/L (135-145) 10/11/24 Potassium 3.9 mmol/L (3.3-5.1) 10/11/24 Chloride 108 mmol/L (96-108) 10/11/24 Carbon Dioxide 27 mmol/L (22-29) 10/11/24 BUN 17 mg/dL (9-16) H 10/11/24 Creatinine 1.34 mg/dL (0.5-1.4) 10/11/24 Calcium 9.3 mg/dL (8.4-10.2) 09/13/24 Renal US 07/06/24 Assessment & Plan Assessment & Plan (1) Hypertension: Code(s): I10 - Essential (primary) hypertension Category: Medical Qualifiers: Hypertension type: primary hypertension Qualified Code(s): I10 - Essential (primary) hypertension (2) CKD (chronic kidney disease) stage 3, GFR 30-59 ml/min: Code(s): N18.30 - Chronic kidney disease, stage 3 unspecified Category: Medical Qualifiers: Chronic kidney disease stage 3 subtype: stage 3a (GFR 45-59) Qualified Code(s): N18.31 - Chronic kidney disease, stage 3a (3) Renal artery stenosis: Code(s): I70.1 - Atherosclerosis of renal artery Category: Medical Plan 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 He is on GABI inhibitor and hydrochlorothiazide. His blood pressure has been at goal at home. He has increased his fluid intake and he adds citrate in his liquid intake. He avoids nonsteroidal anti-inflammatory medications and maintain a low-sodium diet. His renal functions are pretty stable. He will be a candidate for SGLT2 i at the next visit. I did not make any medication changes today. All his questions and concerns were addressed Orders: Orders Electrolytes 6 Months I10 - Essential (primary) hypertension, I70.1 - Atherosclerosis of renal artery, N18.31 - Chronic kidney disease, stage 3a Blood Urea Nitrogen 6 Months I10 - Essential (primary) hypertension, I70.1 - Atherosclerosis of renal artery, N18.31 - Chronic kidney disease, stage 3a Creatinine 6 Months I10 - Essential (primary) hypertension, I70.1 - Atherosclerosis of renal artery, N18.31 - Chronic kidney disease, stage 3a Protein Creatinine Ratio, Ur 6 Months I10 - Essential (primary) hypertension, I70.1 - Atherosclerosis of renal artery, N18.31 - Chronic kidney disease, stage 3a Coding Level of Care Code Est Pt Level 4 (63352) Diagnoses Primary hypertension I10 Hypertension type: primary hypertension Stage 3a chronic kidney disease N18.31 Chronic kidney disease stage 3 subtype: stage 3a (GFR 45-59) Renal artery stenosis I70.1
[2024-10-12 12:21] VITALS: BP 136/60; PULSE 71; O2SAT 99; BMI 29.8
--- OUTSIDE RECORDS SUMMARY | 2024-10-12 12:58 | XMS_ITS | Clinical Summary ---
Author Organization [facility] Address [address] [place] [address] Phone Care Team Providers Care Glass Handler Name Role Phone Rita Maya MD Primary Care Provider [phone]- [phone] Allergies No known active allergies Medications amLODIPine [...] patient's age to complete this topic Insurance [facility] ([id number]) [facility] ([id number]) Care Teams Glass Handler Relationship Specialty Start Date End Date Rita Maya MD [address] [place] [address] [address] [place], [place] PCP - General Internal Medicine 07/10/21
== END 2024-10-12 12:35 | disposition home or self-care (01) ==
LOC: HO.HKA 11:40
PROVIDERS: PCP Internal Medicine; Visit Provider Internal Medicine Nephrology
DX: I10 Essential (primary) hypertension (principal); N18.31 Chronic kidney disease, stage 3a; I70.1 Atherosclerosis of renal artery
CPT/HCPCS: 99214

== ENCOUNTER → 2024-10-12 11:39 | Outpatient (BNVA) | payer OTHER, SELFPAY | PROVIDERS: PCP Internal Medicine; Visit Provider Internal Medicine Nephrology | DX: I12.9 Hypertensive chronic kidney disease with stage 1 through stage 4 chronic kidney disease, or unspecified chronic kidney disease (principal); N18.31 Chronic kidney disease, stage 3a; I70.1 Atherosclerosis of renal artery | CPT/HCPCS: 99212 ==

== ENCOUNTER 2025-01-23 19:59 | Emergency (ER) | payer OTHER, SELFPAY ==
--- NOTE | ~2025-01-23 | CT_ITS ---
CLINICAL HISTORY: L flank pain, hx kidney stones CT abdomen and pelvis without contrast Comparison: None provided Findings: No consolidation or effusion. Trace dilatation of the left ureter with mild left periureteric fat stranding. Trace left perinephric fat stranding. No hydronephrosis or hydroureter. Punctate nonobstructing right upper pole renal calculus. No additional urinary tract calculus. Urinary bladder is within normal limits. Moderately enlarged prostate. Stomach and bowel are normal. Remaining solid organs demonstrate no significant finding. Bones intact. IMPRESSION: Trace dilatation of the left ureter with minimal left perinephric and left periureteric fat stranding. Findings could represent recently passed calculus versus ascending urinary tract infection. Correlate with urinalysis. Moderately enlarged prostate noted. This document has been electronically signed by: Parker Curiel MD on 01/24/2025 01:24:43
[2025-01-23 20:12] VITALS: BP 167/74; PULSE 71; RESP 16; TEMP 36.6; O2SAT 99
[2025-01-23 20:40] LABS: Hematocrit 40.3 % (42.0-52.0); Hemoglobin 13.9 g/dl (14.0-18.0); Mean Corpuscular HGB Conc 34.5 g/dl (31.0-36.0); Mean Corpuscular Hemoglobin 28.4 pg (27.0-33.0); Mean Corpuscular Volume 82.2 fL (80.0-98.0); NRBC Abs Auto 0.000 X10*3/uL (0.0-0.012); NRBC Pct Auto 0.0 /100WBC (0.0-0.2); Platelet Count 186 X10*3/uL (160-400); Red Blood Count 4.90 X10*6/uL (4.60-5.80); White Blood Count 7.4 X10*3/uL (4.8-10.8)
[2025-01-23 20:42] LABS: Appearance Urine Clear; Glucose Urine UA Negative (Negative); PH 6.0 (5.0-9.0); Specific Gravity - Urine 1.020 (1.005-1.025); UMIC TRIGGER UACC YES
[2025-01-23 20:57] LABS: Alanine Aminotransferase 24 U/L (0-40); Albumin Level 4.2 g/dL (3.5-5.0); Alkaline Phosphatase 78 U/L (39-117); Anion Gap 12 (12-20); Aspartate Amino Transferase 23 U/L (5-37); Blood Urea Nitrogen 17 mg/dL (9-16); Calcium 9.2 mg/dL (8.4-10.2); Carbon Dioxide 27 mmol/L (22-29); Chloride 106 mmol/L (96-108); Creatinine Clr Calc Pharmacy 35.3; Estimated Glomerular Filt Rate 43; Potassium 4.0 mmol/L (3.3-5.1); Sodium 141 mmol/L (135-145); Total Protein 7.2 g/dL (6.5-8.0)
--- OUTSIDE RECORDS SUMMARY | 2025-01-23 21:24 | XMS_ITS | Clinical Summary ---
Author Organization [facility] Address [address] [place] [address] Phone Care Team Providers Care Supervisor Tank Cleaning Name Role Phone Rita Maya MD Primary Care Provider [phone]- [phone] Allergies No known active allergies Medications amLODIPine [...] of 2 - PCV) 1964 Influenza Vaccine (#1) 2025 Hepatitis B Vaccine Aged Out No longe r eligible based on patient's age to complete this topic Insurance [address] [place] [address] [facility] ([id number]) [facility] ([id number]) Care Teams Supervisor Tank Cleaning Relationship Specialty Start Date End Date Rita Maya MD [address] [place] [address] [address] [place], [place] PCP - General Internal Medicine 07/10/21
--- OUTSIDE RECORDS SUMMARY | 2025-01-23 21:25 | XMS_ITS | Patient Health Record ---
Author Organization [facility] Address [address] [place] [address] Care Team Providers Care Hand Heel Seat Fitter Name Role Phone Rita Maya Primary Care Provider Unavailab Reji Crowder Jr Unavailable Reason For Referral No Information Medications Medication SIG (Take, Route, Frequency, Duration) Notes Start Date End Date Status Simvastatin 40mg Act nazia Lisinopril 20mg Acti ve Colyte with Flavor Packs 240 GM As directed Orally Over the specified time. for 1 day(s) 08/17/2013 Active Colace 100mg Active Problems Problem Type SNOMED Code ICD Code Onset Dates Problem Status W/U Status Risk Notes Problem Rectal pain (569.42) Active confirmed Plan Of Treatment Future Test Test Name Order Date COLONOSCOPY 08/17/2013 Insurance Providers Payer Name Payer Address Payer Phone Subscriber Number Group Number Insured Name Patient Relationship to Insured Coverage Start Date Coverage End Date MEDICARE OF [place] [address] [place] [id number] [phone] [id number] SK[place] Self - patient is the insured MEDICAID OF [facility] [address] [place] [address] [id number] [place] [place] Self - patient is the insured Medical (General) History Medical History History ICD Code hypertension Denies DC,DM,CVA,Lung disease,renal dise ase
[2025-01-23 21:35] VITALS: BP 153/63; PULSE 68; RESP 18; TEMP 37.1; O2SAT 99
--- NOTE | 2025-01-23 23:22 | ED.ABDPAIN ---
HPI - Abdominal Pain General Chief Complaint: Abdominal Pain Stated Complaint: kidney pain Time Seen by Provider: 01/23/25 23:08 Source: patient Mode of arrival: ambulatory Limitations: no limitations History of Present Illness ED Provider: Dr. Louise Segura HPI narrative: Patient comes to the emergency room complaining of left-sided flank pain. Patient states that he has history of kidney stones. Patient states that he recently came back from vacation, patient states that he drank a lot of soda while he was not medication and that is a trigger for him to get kidney stones. Patient states that he was drinking the soda, Pepcid, hoping that he will not get kidney stones but seems that he did. Patient states that when he arrived to the emergency room, he believes that he passed a kidney stone. Patient has not had any flank pain at all. Patient states that he has noticed that his urine is darker than usual. Denies dysuria. Related Data Home Medications ?Medication ?Instructions ?Recorded ?Confirmed lisinopril 20 1 tab PO DAILY 01/22/23 08/08/24 mg-hydrochlorothiazide 12.5 mg tablet rosuvastatin 20 mg tablet 20 mg PO BEDTIME 01/22/23 08/08/24 Previous Rx's ?Medication ?Instructions ?Recorded finasteride 5 mg tablet 5 mg PO DAILY 90 days #90 tabs 08/08/24 Allergies Allergy/AdvReac Type Severity Reaction Status Date / Time GABI Inhibitors AdvReac renal Verified 01/23/25 20:18 failure atorvastatin AdvReac myalgia Verified 01/23/25 20:18 rosuvastatin AdvReac Constipatio Verified 01/23/25 20:18 n simvastatin AdvReac myalgia Verified 01/23/25 20:18 Review of Systems Review of Systems Constitutional : No Weight loss, No Fever, No Chills, No Night Sweats, No Fatigue, No Malaise ENT/Mouth : No Hearing loss, No Ear Pain, No Nasal Congestion, No Sinus Pain, No Hoarseness, No sore throat, No Rhinorrhea, No Swallowing Difficulty Eyes: No Eye Pain, No Swelling, No Redness, No Foreign Body, No Discharge, No Vision Changes Cardiovascular : No Chest Pain, No SOB, No Dyspnea on Exertion, No Orthopnea, No Edema, No Palpitations Respiratory : No Cough, No Sputum, No Wheezing, No Smoke Exposure, No Dyspnea Gastrointestinal : No Nausea, No Vomiting, No Diarrhea, No Constipation, No abdominal Pain, No Hematochezia, No Melena Genitourinary : no irregular bleeding, No Dysuria, No Urinary Frequency, complaining of darker looking urine, possibly hematuria No Urinary Incontinence, No Urgency, complaining of left-sided Flank Pain, No Urinary Flow Changes, No Hesitancy Musculoskeletal : No joint pain, No Myalgias, No Joint Swelling Skin : No Skin Lesions, No rash Neuro : No Weakness, No Numbness, No Paresthesias, No Loss of Consciousness, No Dizziness, No Headache Psych : No Anxiety/Panic, No Depression, No SI/HI/AH/VH, No Social Issues, Heme/Lymph: No Bruising, No Bleeding,No Lymphadenopathy Endocrine : No Polyuria, No Polydipsia, No Temperature Intolerance [facility], [facility] Past Medical History Medical History High cholesterol Nephrolithiasis Hypertension Surgical History No pertinent past surgical history Family History Family History Father No problems noted. Mother No problems noted. Social History Social History Unable to assess alcohol history related to: Unable to respond Alcohol intake: never Patient Tobacco Use Status: Never used Tobacco Smoked in Last 30 Days: No Use of substances other than those prescribed or required for medical reasons: No Advance Directives: No Advance Directives Information Provided: No Physical Exam ED Exam Exam: Appearance: Alert. Oriented X3. No acute distress. Eyes: Pupils equal, round and reactive to light. ENT: Pharynx normal. Neck: Normal inspection. Neck supple. No lymph nodes noted. No crepitus CVS: Normal heart rate and rhythm. Pulses normal. Normal S1 and S2 Respiratory: No respiratory distress. Breath sounds normal. No Wheezing. No rales Abdomen: Soft and nontender. No rigidity. No distention. Skin: Skin warm and dry. Normal skin color. Normal skin turgor. Extremities: No lower extremity edema. No Lacerations. No Rash Neuro: Oriented X 3. No motor deficit. No sensory deficit. Moving all extremities. No slurred speech. CN 2 through 12 grossly intact Psych: calm, cooperative, normal affect Vital Signs: Vital Signs - 24 hr 01/23/25 20:12 01/23/25 21:35 Temperature 97.8 F 98.7 F Pulse Rate 71 68 Respiratory Rate 16 18 Blood Pressure 167/74 H 153/63 H Pulse Oximetry 99 99 Oxygen Delivery Method Room Air Room Air BMI result Body Mass Index 30.0 Course Course Course Narrative: Patient states that he believes he was passing a kidney stone and he passed it when he arrived to emergency room. All of patient's labs and imaging pending Medical Decision Making Medical Decision Making [facility] Narrative: My interpretation of labs: No significant abnormality in patient's hematology. Chemistry shows a creatinine of 1.58. Patient has had elevated creatinine in the past. Patient has history of chronic kidney disease stage 3. Follows Urology. At this time, patient states that he feels much better. CT scan: There is trace elevation of left ureter, patient did possibly passed a kidney stone. Patient rates asymptomatic Differential Diagnosis Differential Diagnoses: The differential diagnosis associated with the presentation includes (Kidney stones nephritis, musculoskeletal pain) Lab Data [facility] Lab Attestation statement: I reviewed the patient's lab results. 01/23/25 20:35 01/23/25 20:35 Labs: Lab Results 01/23/25 Range/Units 20:35 WBC 7.4 (4.8-10.8) X10*3/uL RBC 4.90 (4.60-5.80) X10*6/uL Hgb 13.9 L (14.0-18.0) g/dl Hct 40.3 L (42.0-52.0) % MCV 82.2 (80.0-98.0) fL MCH 28.4 (27.0-33.0) pg MCHC 34.5 (31.0-36.0) g/dl RDW 14.2 (11.0-16.0) % Plt Count 186 (160-400) X10*3/uL MPV 10.5 (9.4-12.4) fL Absolute Nucleated RBC 0.000 (0.0-0.012) X10*3/uL Nucleated RBC % (auto) 0.0 (0.0-0.2) /100WBC Sodium 141 (135-145) mmol/L Potassium 4.0 (3.3-5.1) mmol/L Chloride 106 (96-108) mmol/L Carbon Dioxide 27 (22-29) mmol/L Anion Gap 12 (12-20) BUN 17 H (9-16) mg/dL Creatinine 1.58 H (0.5-1.4) mg/dL Estim Creat Clear Calc 35.3 Estimated GFR 43 Random Glucose 179 H (60-115) mg/dL Calcium 9.2 (8.4-10.2) mg/dL Total Bilirubin 0.3 (0.0-1.0) mg/dL AST 23 (5-37) U/L ALT 24 (0-40) U/L Alkaline Phosphatase 78 (39-117) U/L Total Protein 7.2 (6.5-8.0) g/dL Albumin 4.2 (3.5-5.0) g/dL Urine Color Yellow Urine Appearance Clear Urine pH 6.0 (5.0-9.0) Ur Specific H[place]dman 1.020 (1.005-1.025) Urine Protein Trace (Neg-Trace) mg/dL Urine Glucose (UA) Negative (Negative) mg/dL Urine Ketones Trace (Negative) mg/dL Urine Blood Large (3+) H (Negative) Urine Nitrite Negative (Negative) Ur Leukocyte Esterase Trace H (Negative) Urine RBC >20 H (0-2) /HPF Urine WBC 0-5 (0-5) /HPF Ur Squamous Epith Cells 0-2 (0-2) /HPF Urine Bacteria None Seen (None Seen) Hyaline Casts 0-2 (0-2) /LPF Independent Interpretation I performed an independent interpretation of an: CT Scan Radiology Impression Discussion of test interpretation with radiology: I have reviewed the radiologist's reading. Radiologist Impression: No consolidation or effusion. Trace dilatation of the left ureter with mild left periureteric fat stranding. Trace left perinephric fat stranding. No hydronephrosis or hydroureter. Punctate nonobstructing right upper pole renal calculus. No additional urinary tract calculus. Urinary bladder is within normal limits. Moderately enlarged prostate. Stomach and bowel are normal. Remaining solid organs demonstrate no significant finding. Bones intact. IMPRESSION: Trace dilatation of the left ureter with minimal left perinephric and left periureteric fat stranding. Findings could represent recently passed calculus versus ascending urinary tract infection. Correlate with urinalysis. Moderately enlarged prostate noted. Critical Care Time Critical Care Time Critical Care Time: Yes Total Critical Care Time: 45 Attestation: I have personally provided critical care time. Time includes review of lab data, radiology results, discussion with consultants, and monitoring for potential decompensation. Intervention performed as documented. Discharge Plan Discharge Clinical Impression: Renal colic Patient Disposition: Home, Self-Care Instructions: Renal Colic (ED) Additional Instructions: Please follow-up with your primary care physician tomorrow. If you have any worsening or new symptoms, please return to the emergency room or call 911 Prescriptions: No Action lisinopril-hydrochlorothiazide 20-12.5 mg tablet 1 tab PO DAILY rosuvastatin 20 mg tablet 20 mg PO BEDTIME finasteride 5 mg tablet 5 mg PO DAILY 90 Days Qty: 90 4RF Print Language: Icelandic
[2025-01-24 01:41] VITALS: BP 118/60; PULSE 61; RESP 18; TEMP 36.9; O2SAT 96
== END 2025-01-24 01:53 | disposition home or self-care (01) ==
PROVIDERS: Emergency Provider Emergency Medicine; PCP Internal Medicine
DX: N23 Unspecified renal colic (principal); I10 Essential (primary) hypertension
CPT/HCPCS: 36415; 74176; 80053; 81001; 85027; 99284

== ENCOUNTER → 2025-01-24 | Outpatient (BNV) | payer OTHER, SELFPAY | PROVIDERS: Emergency Provider Emergency Medicine; PCP Internal Medicine; Visit Provider Radiology Diagnostic Radiology | DX: N20.0 Calculus of kidney (principal) | CPT/HCPCS: 74176 ==

== ENCOUNTER 2025-02-06 08:58 | Outpatient (REF) | payer OTHER, SELFPAY ==
[2025-02-06 10:08] LABS: Alanine Aminotransferase 30 U/L (0-40); Albumin Level 4.3 g/dL (3.5-5.0); Alkaline Phosphatase 79 U/L (39-117); Anion Gap 11 (12-20); Aspartate Amino Transferase 25 U/L (5-37); Blood Urea Nitrogen 17 mg/dL (9-16); Calcium 9.3 mg/dL (8.4-10.2); Carbon Dioxide 28 mmol/L (22-29); Chloride 107 mmol/L (96-108); Cholesterol 159 mg/dL (<200); Estimated Glomerular Filt Rate 47; HDL Cholesterol 40 mg/dL (>40); Potassium 3.8 mmol/L (3.3-5.1); Sodium 142 mmol/L (135-145); Total Protein 7.3 g/dL (6.5-8.0); Triglycerides 100 mg/dL (<150)
[2025-02-06 10:27] LABS: Prostate Specific Antigen 1.83 ng/mL (<0.05-4.0)
--- OUTSIDE RECORDS SUMMARY | 2025-02-06 10:29 | XMS_ITS | Clinical Summary ---
Author Organization [facility] Address [address] [place] [address] Phone Care Team Providers Care Deputy Insurance Commissioner Name Role Phone Rita Maya MD Primary Care Provider [phone] Allergies No known active allergies Medications amLODIPine [...] to complete this topic Insurance # [address] [place] [address] [facility] ([id number]) [facility] ([id number]) Care Teams Deputy Insurance Commissioner Relationship Specialty Start Date End Date Rita Maya MD [address] [place] [address] [address] [place], [place] PCP - General Internal Medicine 07/10/21
--- OUTSIDE RECORDS SUMMARY | 2025-02-06 10:29 | XMS_ITS | Patient Health Record ---
Author Organization [facility] Address [address] [place] [address] Care Team Providers Care Seed Yeast Operator Name Role Phone Rita Maya Primary Care [...] W/U Status Risk Notes Problem Rectal pain (20093252) Rectal pain (569.42) Active confirmed Plan Of Treatment Future Test Test Name Order Date COLONOSCOPY 08/17/2013 Insurance Providers Payer Name Payer Address Payer Phone Subscriber Number Group Number Insured Name Patient Relationship to Insured Coverage Start Date Coverage End Date MEDICARE OF [place] [address] [place] [id number] [phone] [id number] [place] Self - patient is the insured MEDICAID OF [facility] [address] [place] [address] [id number] [place] Self - patient is the insured Medical (General) History Medical History History ICD Code hypertension Denies VA,DM,CVA,Lung disease,renal dise ase
== END 2025-02-06 08:59 | disposition home or self-care (01) ==
LOC: HO.LAB 08:58
PROVIDERS: PCP Internal Medicine; Referring Provider Nurse Practitioner Family; Visit Provider Internal Medicine
DX: I12.9 Hypertensive chronic kidney disease with stage 1 through stage 4 chronic kidney disease, or unspecified chronic kidney disease (principal); E78.00 Pure hypercholesterolemia, unspecified; I70.1 Atherosclerosis of renal artery; N40.0 Benign prostatic hyperplasia without lower urinary tract symptoms; Z12.5 Encounter for screening for malignant neoplasm of prostate
CPT/HCPCS: 36415; 80053; 80061; 84153

== ENCOUNTER 2025-04-18 07:36 | Outpatient (REF) | payer OTHER, SELFPAY ==
--- OUTSIDE RECORDS SUMMARY | 2025-04-18 07:39 | XMS_ITS | Clinical Summary ---
Author Organization [facility] Address [address] [place] [address] Phone Care Team Providers Care Shank Threader Name Role Phone Rita Maya MD Primary Care Provider [phone] Allergies No known active allergies Medications amLODIPine [...] to complete this topic Insurance [address] [place] [address] [facility] ([id number]) [facility] ([id number]) Care Teams Shank Threader Relationship Specialty Start Date End Date Rita Maya MD [address] [place] [address] [address] [place], [place] PCP - General Internal Medicine 07/10/21
[2025-04-18 08:45] LABS: Anion Gap 9 (12-20); Blood Urea Nitrogen 19 mg/dL (9-16); Carbon Dioxide 28 mmol/L (22-29); Chloride 110 mmol/L (96-108); Estimated Glomerular Filt Rate 45; Potassium 3.9 mmol/L (3.3-5.1); Sodium 143 mmol/L (135-145)
[2025-04-18 08:47] LABS: Protein/Creatinine Ratio, Ur 0.05 (<0.2); Total Protein Urine Random 11 mg/dL (<12)
== END 2025-04-18 07:37 | disposition home or self-care (01) ==
LOC: HO.LAB 07:36
PROVIDERS: PCP Internal Medicine; Visit Provider Internal Medicine Nephrology
DX: I12.9 Hypertensive chronic kidney disease with stage 1 through stage 4 chronic kidney disease, or unspecified chronic kidney disease (principal); N18.31 Chronic kidney disease, stage 3a; I70.1 Atherosclerosis of renal artery
CPT/HCPCS: 36415; 80051; 82565; 82570; 84156; 84520

== ENCOUNTER 2025-04-19 10:23 | Outpatient (AMB) | payer OTHER, SELFPAY ==
--- NOTE | 2025-04-19 10:42 | HO.NEPHOV ---
Vital Signs 04/19/25 10:43 Height 5 ft 3 in Weight 172 lb 8 oz BMI 30.6 BP 140/64 H Blood Pressure Location Lt brachial Position Sitting Pulse 67 Pulse Source Pulse Oximeter Pulse Oximetry (%) 98 Oxygen Delivery Method Room Air Intake Visit Reasons: 6 MO FU-Conf Descriptive Catalog Librarian Required: No Accompanied by: Self / Same As Patient Allergies GABI Inhibitors Adverse Reaction (Verified 04/19/25 10:43) renal failure atorvastatin Adverse Reaction (Verified 04/19/25 10:43) myalgia rosuvastatin Adverse Reaction (Verified 04/19/25 10:43) Constipation simvastatin Adverse Reaction (Verified 04/19/25 10:43) myalgia HPI Comments Details: Gurdeep is a 79-year-old male whom I had the privilege of seeing in follow-up for his chronic kidney disease, hypertension and nephrolithiasis. He has been on antihypertensive medications including GABI inhibitor and diuretics for a long time. He is not a diabetic. He is compliant with his medications. He does not take any nonsteroidal anti-inflammatory medications. He has good urine output. He has no edema, nausea, vomiting, diarrhea, chest pain, shortness of breath, proximal nocturnal dyspnea or orthopnea. He has not had any recurrence of nephrolithiasis. He has no history of recent hematuria. He does not smoke or has any history of drug intake. His renal functions have been stable [facility] Medical History High cholesterol Nephrolithiasis Hypertension Surgical History No pertinent past surgical history Family History Father No problems noted. Mother No problems noted. Social History Unable to assess alcohol history related to: Unable to respond Alcohol intake: never Patient Tobacco Use Status: Never used Tobacco Review of Systems Const All systems reviewed & are unremarkable except as noted in HPI and below Physical Exam Vital Signs: Last Vital Signs Pulse 67 04/19/25 10:43 BP 140/64 H 04/19/25 10:43 Pulse Ox 98 04/19/25 10:43 Oxygen Delivery Method Room Air 04/19/25 10:43 BMI result Body Mass Index 30.6 Const General: comfortable and no acute distress Orientation/consciousness: patient oriented x3 HEENT Head: Yes normocephalic Mouth: Normal oral and palatal mucosa present Eyes EOM: EOMs intact bilaterally Neck Neck: Yes supple Resp Auscultation: clear to auscultation bilaterally Cardio Jugular venous distension: no JVD Rate: regular rate GI Palpation (GI): Soft to palpation Auscultation: normal bowel sounds General: Yes no CVA tenderness Back/Spine/Pelvis Back: no CVA tenderness Skin General skin exam: no rashes or lesions noted Neuro General: patient oriented x3 and moves all extremities Extrem General: Yes no pedal edema Results Reviewed Nephrology Results: Hgb, (14.0-18.0) 13.9 g/dl L 01/23/25 WBC, (4.8-10.8) 7.4 X10*3/uL 01/23/25 Plt Count, (160-400) 186 X10*3/uL 01/23/25 Sodium, (135-145) 143 mmol/L 04/18/25 Potassium, (3.3-5.1) 3.9 mmol/L 04/18/25 Chloride, (96-108) 110 mmol/L H 04/18/25 Carbon Dioxide, (22-29) 28 mmol/L 04/18/25 BUN, (9-16) 19 mg/dL H 04/18/25 Creatinine, (0.5-1.4) 1.52 mg/dL H 04/18/25 Calcium, (8.4-10.2) 9.3 mg/dL 02/06/25 Urine Protein, (Neg-Trace) Trace mg/dL 01/23/25 Urine Creatinine 200.46 mg/dL 04/18/25 Protein/Creatinin Ratio, (<0.2) 0.05 04/18/25 Renal US 07/06/24 Assessment & Plan Assessment & Plan (1) CKD (chronic kidney disease) stage 3, GFR 30-59 ml/min: Code(s): N18.30 - Chronic kidney disease, stage 3 unspecified Category: Medical Qualifiers: Chronic kidney disease stage 3 subtype: stage 3a (GFR 45-59) Qualified Code(s): N18.31 - Chronic kidney disease, stage 3a (2) Renal cyst: Code(s): N28.1 - Cyst of kidney, acquired Category: Medical (3) Nephrolithiasis: Code(s): N20.0 - Calculus of kidney Category: Medical (4) Hypertension: Code(s): I10 - Essential (primary) hypertension Category: Medical Qualifiers: Hypertension type: primary hypertension Qualified Code(s): I10 - Essential (primary) hypertension (5) Renal artery stenosis: Code(s): I70.1 - Atherosclerosis of renal artery Category: Medical Plan 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 He is on GABI inhibitor and hydrochlorothiazide. His blood pressure has been at goal at home. He has increased his fluid intake and he adds citrate in his liquid intake. He avoids nonsteroidal anti-inflammatory medications and maintain a low-sodium diet. His renal functions are pretty stable. He will be a candidate for SGLT2i. I did not make any medication changes today. All his questions and concerns were addressed Orders: Orders Blood Urea Nitrogen 5 Months I10 - Essential (primary) hypertension, I70.1 - Atherosclerosis of renal artery, N18.31 - Chronic kidney disease, stage 3a, N20.0 - Calculus of kidney, N28.1 - Cyst of kidney, acquired Creatinine 5 Months I10 - Essential (primary) hypertension, I70.1 - Atherosclerosis of renal artery, N18.31 - Chronic kidney disease, stage 3a, N20.0 - Calculus of kidney, N28.1 - Cyst of kidney, acquired Parathyroid Hormone Intact 5 Months I10 - Essential (primary) hypertension, I70.1 - Atherosclerosis of renal artery, N18.31 - Chronic kidney disease, stage 3a, N20.0 - Calculus of kidney, N28.1 - Cyst of kidney, acquired Vitamin D 25-OH Total 5 Months I10 - Essential (primary) hypertension, I70.1 - Atherosclerosis of renal artery, N18.31 - Chronic kidney disease, stage 3a, N20.0 - Calculus of kidney, N28.1 - Cyst of kidney, acquired Electrolytes 5 Months I10 - Essential (primary) hypertension, I70.1 - Atherosclerosis of renal artery, N18.31 - Chronic kidney disease, stage 3a, N20.0 - Calculus of kidney, N28.1 - Cyst of kidney, acquired Calcium 5 Months I10 - Essential (primary) hypertension, I70.1 - Atherosclerosis of renal artery, N18.31 - Chronic kidney disease, stage 3a, N20.0 - Calculus of kidney, N28.1 - Cyst of kidney, acquired Protein Creatinine Ratio, Ur 5 Months I10 - Essential (primary) hypertension, I70.1 - Atherosclerosis of renal artery, N18.31 - Chronic kidney disease, stage 3a, N20.0 - Calculus of kidney, N28.1 - Cyst of kidney, acquired Coding Level of Care Code Est Pt Level 4 (57474) Diagnoses Stage 3a chronic kidney disease N18.31 Chronic kidney disease stage 3 subtype: stage 3a (GFR 45-59) Renal cyst N28.1 Nephrolithiasis N20.0 Primary hypertension I10 Hypertension type: primary hypertension Renal artery stenosis I70.1
[2025-04-19 10:43] VITALS: BP 140/64; PULSE 67; O2SAT 98; BMI 30.6
--- OUTSIDE RECORDS SUMMARY | 2025-04-19 12:19 | XMS_ITS | Clinical Summary ---
Author Organization [facility] Address [address] [place] [address] Phone Care Team Providers Care Commercial Loan Coordinator Name Role Phone Rita Maya MD Primary Care Provider [phone]- [phone] Allergies No known active allergies Medications amLODIPine [...] to complete this topic Insurance # [address] [place] [address] [facility] ([id number]) [facility] ([id number]) Care Teams Commercial Loan Coordinator Relationship Specialty Start Date End Date Rita Maya MD [address] [place] [address] [address] [place], [place] PCP - General Internal Medicine 07/10/21
== END 2025-04-19 11:00 | disposition home or self-care (01) ==
LOC: HO.HKA 10:24
PROVIDERS: PCP Internal Medicine; Visit Provider Internal Medicine Nephrology
DX: N18.31 Chronic kidney disease, stage 3a (principal); N28.1 Cyst of kidney, acquired; N20.0 Calculus of kidney; I10 Essential (primary) hypertension; I70.1 Atherosclerosis of renal artery
CPT/HCPCS: 99214

== ENCOUNTER → 2025-04-19 10:23 | Outpatient (BNVA) | payer OTHER, SELFPAY | PROVIDERS: PCP Internal Medicine; Visit Provider Internal Medicine Nephrology | DX: I12.9 Hypertensive chronic kidney disease with stage 1 through stage 4 chronic kidney disease, or unspecified chronic kidney disease (principal); N18.31 Chronic kidney disease, stage 3a; N28.1 Cyst of kidney, acquired; N20.0 Calculus of kidney; I70.1 Atherosclerosis of renal artery; Z79.899 Other long term (current) drug therapy | CPT/HCPCS: 99212 ==